=== PATIENT | male | born 1950 | race African-American/Black ===

== ENCOUNTER 2021-05-17 17:03 | Observation (INO) | payer OTHER ==
--- OUTSIDE RECORDS SUMMARY | 2021-05-17 17:09 | XMS REPORT | Continuity of Care Document ---
:1950 Author Organization [facility] Address [address] [place] [address] Care Team Providers Name Role Phone Norma Guerra Primary Care Physician MUCHER Attending Clinician Unavailable Radiology Attending Clinician Unavailable RADIOLOGY Attending Clinician Unavailable Payers Payer Name Policy Type Policy Number Effective Date Expiration Date S ource Problems Condition Condition Condition Status Onset Resolution Last Treating Co mments Source Name Details Category Date Date Treatment Clinician Date Gait Gait Disease Active 2013-02 Univers abnormalit abnormalit 1-12 it y of y y 00:00: [place] 00 [facility] Closed T12 Closed T12 Disease Active 2013-02 U nivers fracture fracture 1-10 ity of 00:00: [place] 00 Medical Branch History of History of Disease Active 2013-02 U nivers stroke stroke 1-10 ity of 00:00: [place] 00 Medical Branch Neurologic Neurologic Disease Active 2013-02 Overview : Univers al deficit al deficit 1-10 Formattin ity of present present 00:00: g of this [place] 00 note Medical might be Branch different from the original. LUE/LLE Back pain Back pain Disease Active 2013-02 Uni vers 1-10 ity of 00:00: [place] 00 Medical Branch Weakness Weakness Disease Active 2013-02 Unive rs of left of left 1-10 ity of upper upper 00:00: [place] extremity extremity 00 Medi deon Branch Lower Lower Disease Active 2013-02 Univers extremity extremity 1-10 ity of weakness, weakness, 00[place] Allergies, Adverse Reactions, Alerts Allergy Allergy Status Severity Reaction(s) Onset Inactive Treating Comm ents Source Name Type Date Date Clinician NO KNOWN Drug Active Univers ALLERGIE Class ity of S [facility] Social History Social Habit Start Date Stop Date Quantity Comments Source Exposure to Not sure [place] of SARS-CoV-2 [place] [facility] (event) Branch Tobacco use and 2013-12-21 2013-12-21 Current user Univers ity of exposure 00:00:00 00:00:00 [facility] Alcohol intake 2013-12-21 2013-12-21 Current University of 00:00:00 00:00:00 non-drinker of [facility] alcohol Branch (finding) Sex Ass[birth year] At [birth year] Universit y of 00:00:00 00:00:00 [facility] Smoking Status Start Date Stop Date Source Former smoker 2013-12-21 00:00:00 2013-12-21 00:00:00 Universi ty of [facility] Medications Ordered Filled Start Stop Current Ordering Indication Dosage Frequency Signature Comments Components Source Medication Medication Date Date Medication? Clinician (SIG) Name Name gadoteridol 2020-02- No [id number] .2mL/kg 0.2 mL/kg, Univers (PROHANCE-2 11-11 Intravenou i ty of 0 mL) 19:45: 19:33 s, ONCE, 1 [place] injection 00 :00 dose, On Medica l 0.2 mL/kg Fri Branch 11/11/20 at 1445, Routine ibuprofen 2013-02 Yes 600mg Take 1 Tab U nivers (MOTRIN) 1-12 by mouth ity of 600 mg 00:00: every 6 [place] tablet 00 (six) Medical hours as Branch needed for Alternate with [place] for pain scale 1-3 or Alternate with [place] for pain scale 4-6. carisoprodo 2013-02 Yes 350mg Take 1 Tab Univers l (SOMA) 1-12 by mouth 3 ity o f 350 mg 00:00: (three) [place] tablet 00 times Medical daily. Branch Immunizations Ordered Filled Immunization Date Status Comments Sour e Immunization Name Name Influenza Virus 2013-12-23 Completed Universit y of Vaccine Quad IM 3+ 00:00:00 [facility] YRS Branch Procedures Procedure Date / Time Performing Clinician Source Performed MR LUMBAR SPINE W WO 2020-11-11 19:10:00 Requisition, Paper [facility] CONTRAST Medical Branch NOTICE OF BILLING 2020-11-11 17:54:48 Doctor Unassigned, [facility] PRACTICES FOR MEDICARE [facility] PATIENTS [facility] PATIENT FINANCIAL 2020-11-11 17:54:29 Doctor Unassigned, Un [facility] POLICY [facility] NO SHOW OR MISSED 2020-11-11 17:54:14 Doctor Unassigned, Nora [facility] APPOINTMENT POLICY [facility] ACKNOWLEDGEMENT CONSENT/REFUSAL FOR 2020-11-11 17:53:55 [facility] ASSIGNMENT OF BENEFITS 2020-11-11 17:53:43 Doctor Unassigned, Un [facility] Encounters Start End Encounter Admission Attending Care Care Encounter Source Date/Time Date/Time Type Type Clinicians Facility Department ID 2021-05-16 2021-05-16 Outpatient REFUGIOER, [facility] [id number] [place] 00:00:00 00:00:00 [facility]RI[facility]Y [address] 2021-04-10 2021-04-10 Outpatient [facility] [id number] [place] 00:00:00 00:00:[address] 2020-11-11 2020-11-11 Hospital Radiology [facility] [id number] [facility] 12:52:32 23:59:00 Encounter [place] [id number] ity [place] [id number] [facility] [id number] [facility] 804 Branch 2020-11-11 2020-11-11 Outpatient R RADIOLOGY [facility] [id number] [facility] 00:00:00 00:00:00 ity [facility] Medical [place] Results This patient has no known results.
[2021-05-17 17:45] LABS: Absolute Lymphocytes (CBC) 2.2 K/uL (0.7-4.9); Lymphocytes % 20.4 % (15.3-44.8); MPV 9.5 fL (7.6-11.3); RBC Red Blood Cell Count 4.74 M/uL (4.33-5.43)
[2021-05-17 18:02] LABS: Potassium 4.2 mmol/L (3.5-5.1)
--- NOTE | 2021-05-17 18:38 | RAD REPORT ---
EXAM DESCRIPTION: RAD - Chest Single View - 05/17/2021 6:11 pm CLINICAL HISTORY: CHEST PAIN Chest pain. COMPARISON: Chest Pa And Lat (2 Views) dated 09/12/2016 FINDINGS: Portable technique limits examination quality. Moderate bilateral pulmonary opacities are present with atelectasis in both lung bases probably repre senting pulmonary edema. Small bilateral pleural effusions suspected. The heart is moderately enlarge d. IMPRESSION: Mild to moderate CHF pattern is suspected.
[2021-05-17] MEDS ORDERED: MORPHINE 4 MG/ML SYR ONE (19:05)
[2021-05-17] MEDS ORDERED: ONDANSETRON 4 MG/2 ML VIAL ONE (19:05)
--- NOTE | 2021-05-17 19:56 | RAD REPORT ---
EXAM DESCRIPTION: CT - Angio Aorta For Dissection - 05/17/2021 7:42 pm CLINICAL HISTORY: Chest pain radiating to the back. Dissection;PE COMPARISON: No comparisons TECHNIQUE: CT angiography of the aorta was performed with MIPs. All CT scans are performed using dose optimization technique as appropriate and may include automated exposure control or mA/KV adjustment according to patient size. FINDINGS: A left aortic arch is present with normal branching pattern of the great vessels.No acute aortic finding is seen such as aneurysm, penetrating ulcer or dissection. Aortoiliac atherosclerosis is present. The celiac axis, SMA, DIPTI and renal arteries are patent. No evidence of pulmonary embolism. Mild linear atelectasis is seen in both lung bases posteriorly. The liver demonstrates no focal mass or biliary dilatation.The spleen, pancreas, adrenal glands and k idneys are within normal limits for arterial phase imaging. Moderate fat containing umbilical hernia. No bowel obstruction, free fluid or abscess.Normal appendix.No pathologic enlarged lymphadenopathy id entified. Postsurgical changes with hardware in place involving the lumbar spine in right pelvis. IMPRESSION: No acute aortic finding is demonstrated. Linear atelectasis seen in both lung bases posteriorly.
--- NOTE | 2021-05-17 20:48 | EDPHYS ---
Physician Documentation [facility] Name: Westley Rolle Age: 70 yrs Sex: Male : 1950 Arrival Date: 05/17/2021 Time: 17:06 Bed 19 Private MD: Heidi Guerra C ED Physician Tha Mitchell HPI: 05/17 20:33 This 70 yrs old Black Male presents to ER via Ambulatory with complaints of Chest Pain, milli Back Pain. 20:33 The patient or guardian reports chest pain that is located primarily in the substernal milli area. Onset: 3 day(s) ago. The pain radiates to Associated signs and symptoms: Pertinent positives: lightheadedness, palpitations. The chest pain is described as a heaviness. Duration: The patient or guardian reports multiple episodes, that wax and wane. Modifying factors: The symptoms are alleviated by remaining still, rest, the symptoms are aggravated by exertion, movement. Severity of pain: At its worst the pain was mild in the emergency department the pain has improved moderately. The patient has not experienced similar symptoms in the past. Historical: - Allergies: 17:18 No Known Allergies; jd3 - Home Meds: 17:18 Metformin Oral [Active]; amlodipine oral [Active]; atorvastatin oral [Active]; jd3 Oxycodone HCl Oral [Active]; losartan oral [Active]; Flomax Oral [Active]; - PMHx: 17:18 Chronic pain; Hypertension; jd3 - PSHx: 17:18 back; neck; Left elbow; JUSTINE knee; jd3 - Immunization history:: Adult Immunizations up to date, Client reports receiving the 2nd dose of the Covid vaccine, Flu vaccine is not up to date. - Social history:: Smoking status: Patient/guardian denies using tobacco, the patient reports quitting approximately 3 years ago. - Family history:: not pertinent. ROS: 20:33 Constitutional: Negative for fever, chills, and weight loss, Eyes: Negative for injury, milli pain, redness, and discharge, ENT: Negative for injury, pain, and discharge, Neck: Negative for injury, pain, and swelling, Respiratory: Negative for shortness of breath, cough, wheezing, and pleuritic chest pain, Abdomen/GI: Negative for abdominal pain, nausea, vomiting, diarrhea, and constipation, Back: Negative for injury and pain, : Negative for injury, bleeding, discharge, and swelling, MS/Extremity: Negative for injury and deformity, Skin: Negative for injury, rash, and discoloration, Neuro: Negative for headache, weakness, numbness, tingling, and seizure, Psych: Negative for depression, anxiety, suicide ideation, homicidal ideation, and hallucinations, Allergy/Immunology: Negative for hives, rash, and allergies, Endocrine: Negative for neck swelling, polydipsia, polyuria, polyphagia, and marked weight changes, Hematologic/Lymphatic: Negative for swollen nodes, abnormal bleeding, and unusual bruising. 20:33 Cardiovascular: Positive for chest pain. Exam: 18:04 ECG was reviewed by the Attending Physician. kdr 20:33 Constitutional: This is a well developed, well nourished patient who is awake, alert, milli and in no acute distress. Head/Face: Normocephalic, atraumatic. Eyes: Pupils equal round and reactive to light, extra-ocular motions intact. Lids and lashes normal. Conjunctiva and sclera are non-icteric and not injected. Cornea within normal limits. Periorbital areas with no swelling, redness, or edema. ENT: Nares patent. No nasal discharge, no septal abnormalities noted. Tympanic membranes are normal and external auditory canals are clear. Oropharynx with no redness, swelling, or masses, exudates, or evidence of obstruction, uvula midline. Mucous membranes moist. Neck: Trachea midline, no thyromegaly or masses palpated, and no cervical lymphadenopathy. Supple, full range of motion without nuchal rigidity, or vertebral point tenderness. No Meningismus. Chest/axilla: Normal chest wall appearance and motion. Nontender with no deformity. No lesions are appreciated. Cardiovascular: Regular rate and rhythm with a normal S1 and S2. No gallops, murmurs, or rubs. Normal PMI, no JVD. No pulse deficits. Respiratory: Lungs have equal breath sounds bilaterally, clear to auscultation and percussion. No rales, rhonchi or wheezes noted. No increased work of breathing, no retractions or nasal flaring. Abdomen/GI: Soft, non-tender, with normal bowel sounds. No distension or tympany. No guarding or rebound. No evidence of tenderness throughout. Back: No spinal tenderness. No costovertebral tenderness. Full range of motion. Male : Normal genitalia with no discharge or lesions. Skin: Warm, dry with normal turgor. Normal color with no rashes, no lesions, and no evidence of cellulitis. MS/ Extremity: Pulses equal, no cyanosis. Neurovascular intact. Full, normal range of motion. Neuro: Awake and alert, GCS 15, oriented to person, place, time, and situation. Cranial nerves II-XII grossly intact. Motor strength 5/5 in all extremities. Sensory grossly intact. Cerebellar exam normal. Normal gait. Psych: Awake, alert, with orientation to person, place and time. Behavior, mood, and affect are within normal limits. Vital Signs: 17:41 Pulse 93; Resp 17; Pulse Ox 94% on R/A; ap3 17:42 BP 119 / 78; Weight 101.15 kg; Height 5 ft. 11 in. (180.34 cm); ap3 19:15 BP 125 / 84; Pulse 91; Resp 16; Pulse Ox 93% on R/A; ap3 20:14 BP 111 / 69; Pulse 89; Resp 20; Pulse Ox 92% on R/A; bb 17:42 Body Mass Index 31.10 (101.15 kg, 180.34 cm) ap3 MDM: 19:33 Patient medically screened. milli 20:38 Differential diagnosis: abnormal EKG, acute myocardial infarction, acute pericarditis, milli anxiety, coronary artery disease chest wall pain, congestive heart failure cholecystitis, costochondritis, esophagitis, pancreatitis, pneumonia, pneumothorax, pulmonary embolus, stable angina. HEART Score: History: Moderately Suspicious (1), ECG: Non specific repolarization disturbance / LBTB / PM (1), Age: > or = 65 years (2), Risk Factors: > or = 3 Risk factors for atherosclerotic disease (2), [Hypercholesterolemia] [Hypertension] [+ Family HX] Troponin: < or = 1 x Normal Limit (0), Total Score = 6. The patient was given aspirin in the Emergency Department. The patient's deep vein thrombosis risk score was calculated as follows: Total Score: 0. This patient was found to be at low risk for a deep vein thrombosis by using the Well's assessment criteria. The patient's pulmonary embolism risk score was calculated as follows: Total Score: 0-2 points. This patient was found to be at low risk for a pulmonary embolism by using the Well's assessment criteria. KODI Risk Score: 1 - patient's age is greater or equal to 65 years, 1 - Three or more CAD risk factors, 1- Known CAD, TOTAL SCORE = 3. Data reviewed: vital signs, nurses notes, lab test result(s), EKG, radiologic studies, CT scan. Data interpreted: quality assurance monitor final: rate is 89 beats/min, rhythm is regular, with no ectopy, Pulse oximetry: on room air is 92 %. Test interpretation: by ED physician or midlevel provider: ECG, plain radiologic studies. 05/17 17:20 Order name: Basic Metabolic Panel; Complete Time: 18:40 [facility] 05/17 17:20 Order name: CBC with Diff; Complete Time: 18:40 [facility] 05/17 17:20 Order name: Troponin HS; Complete Time: 18:40 [facility] 05/17 19:14 Order name: SARS-COV-2 RT PCR (Document "Date of Onset" if Symptomatic) [facility] 05/17 20:47 Order name: BNP [facility] 05/17 20:47 Order name: CRP [facility] 05/17 17:20 Order name: XRAY Chest (1 view); Complete Time: 18:40 [facility] 05/17 19:14 Order name: CT Aorta for Dissection; Complete Time: 20:07 milli 05/17 17:20 Order name: EKG; Complete Time: 17:21 [facility] 05/17 17:20 Order name: Cardiac monitoring; Complete Time: 17:22 [facility] 05/17 17:20 Order name: EKG - Nurse/Tech; Complete Time: 17:23 [facility] 05/17 17:20 Order name: IV Saline Lock; Complete Time: 17:38 [facility] 05/17 17:20 Order name: Labs collected and sent; Complete Time: 17:38 [facility] 05/17 17:20 Order name: O2 Per Protocol; Complete Time: 17:23 [facility] 05/17 17:20 Order name: O2 Sat Monitoring; Complete Time: 17:23 [facility] 05/17 20:55 Order name: CONS Physician Consult EDMS EC:04 Rate is 94 beats/min. Rhythm is irregular, Sinus Rhythm with PACs. QRS [place] is Normal. kdr IN interval is normal. QRS interval is normal. QT interval is normal. Clinical impression: NSR w/ Non-specific ST/T Changes and Sinus arrythmia. Administered Medications: 19:10 Drug: morphine 4 mg Route: IVP; Site: right wrist; ap3 20:18 Follow up: Response: No adverse reaction; Pain is decreased; RASS: Alert and Calm (0) bb 19:10 Drug: Zofran (Ondansetron) 4 mg Route: IVP; Site: right wrist; ap3 20:18 Follow up: Response: No adverse reaction bb 21:09 CANCELLED (Other Intervention Used): Lopressor (metoprolol TARTRATE) 50 mg PO once bb Disposition Summary: 05/17/21 21:42 Eloped Disposition: after being seen by provider milli Problem: new(05/17/21 21:42) milli Symptoms: have improved(05/17/21 21:42) milli Reason: unknown milli Condition: Undetermined(05/17/21 21:42) milli Diagnosis - Chest pain, unspecified milli - Unstable angina(05/17/21 21:42) milli - Essential (primary) hypertension(05/17/21 21:42) milli - Unspecified kidney failure - insuffency(05/17/21 21:42) milli Followup: milli - With: Heidi Guerra MD - When: Upon discharge from the Emergency Department - Reason: Recheck today's complaints, Continuance of care, Re-evaluation by your physician Signatures: Dispatcher [employer] EDMS Tha Mitchell MD MD cha Rittger, Kevin, MD MD kdr Ballard, Brenda, RN RN Eliseo Mclaughlin RN RN jd3 Eufemia Payan RN RN ap3 Corrections: (The following items were deleted from the chart) 19:18 18:46 Thorax W/ Con+CT.RAD.BRZ ordered. EDMS EDMS 21:09 20:46 Lopressor (metoprolol TARTRATE) 50 mg PO once ordered. milli bb 21:09 21:09 Lopressor (metoprolol TARTRATE) 50 mg PO once ordered. bb bb 21:39 20:48 Observation milli milli 21:39 20:48 Heidi Guerra cha milli 21:39 20:48 Telemetry/MedSurg (observation) milli milli 21:39 20:48 Fair milli milli 21:39 20:48 new milli milli 21:39 20:48 have improved milli milli 21:39 20:48 Standard milli milli 21:39 20:48 milli milli :39 20:48 Angina pectoris, unspecified milli milli : 20:48 Unstable angina mlili milli : 20:48 Essential (primary) hypertension milli milli : 20:48 Unspecified kidney failure - insufficency milli milli
--- NOTE | 2021-05-17 20:48 | ER ---
Nurse's Notes [facility] Name: Westley Rolle Age: 70 yrs Sex: Male : 1950 Arrival Date: 05/17/2021 Time: 17:06 Bed 19 Private MD: Heidi Guerra C Diagnosis: Chest pain, unspecified;Unstable angina;Essential (primary) hypertension;Unspecified kidney failure-insuffency Presentation: 05/17 17:16 Chief complaint: Patient states: "I am having this chest pain that travels to through [facility] straight to my back. I had an appointment with my doctor today and they said to come get checked out.". Coronavirus screen: At this time, the client does not indicate any symptoms associated with coronavirus-19. Ebola Screen: No symptoms or risks identified at this time. Initial Sepsis Screen: Does the patient meet any 2 criteria? No. Patient's initial sepsis screen is negative. Does the patient have a suspected source of infection? No. Patient's initial sepsis screen is negative. Risk Assessment: Do you want to hurt yourself or someone else? Patient reports no desire to harm self or others. Onset of symptoms was May 15, 2021. 17:16 Method Of Arrival: Ambulatory j 17:16 Acuity: DANGELO 3 jd3 Historical: - Allergies: 17:18 No Known Allergies; jd3 - Home Meds: 17:18 Metformin Oral [Active]; amlodipine oral [Active]; atorvastatin oral [Active]; jd3 Oxycodone HCl Oral [Active]; losartan oral [Active]; Flomax Oral [Active]; - PMHx: 17:18 Chronic pain; Hypertension; jd3 - PSHx: 17:18 back; neck; Left elbow; JUSTINE knee; jd3 - Immunization history:: Adult Immunizations up to date, Client reports receiving the 2nd dose of the Covid vaccine, Flu vaccine is not up to date. - Social history:: Smoking status: Patient/guardian denies using tobacco, the patient reports quitting approximately 3 years ago. - Family history:: not pertinent. Screenin:40 Abuse screen: Denies threats or abuse. Nutritional screening: No deficits noted. ap3 Tuberculosis screening: No symptoms or risk factors identified. Fall Risk None identified. Assessment: 17:39 General: Appears in no apparent distress. comfortable, Behavior is calm, cooperative, ap3 appropriate for age. Pain: Complains of pain in chest Pain radiates to left supraclavicular area Pain began gradually, 2-3 days ago. Neuro: Level of Consciousness is awake, alert, obeys commands, Oriented to person, place, time, situation, Appropriate for age Gait is steady, Speech is normal. Cardiovascular: Patient's skin is warm and dry. Respiratory: Airway is patent Respiratory effort is even, unlabored, Respiratory pattern is regular, symmetrical. 19:16 Reassessment: Patient and/or family updated on plan of care and expected duration. Pain ap3 level reassessed. Patient is alert, oriented x 3, equal unlabored respirations, skin warm/dry/pink. 19:25 Reassessment: pt in CT scan. bb 20:12 General: Appears in no apparent distress. Behavior is calm, cooperative. Pain: Denies bb pain. Neuro: Level of Consciousness is awake, alert, obeys commands, Oriented to person, place, time, situation. Cardiovascular: Capillary refill < 3 seconds Patient's skin is warm and dry. Respiratory: Airway is patent Respiratory effort is even, unlabored, Respiratory pattern is regular. GI: No signs and/or symptoms were reported involving the gastrointestinal system. Musculoskeletal: Circulation, motion, and sensation intact. 21:18 Reassessment: pt not in room IV catheter on counter and is intact. Dr Mitchell notified bb of pt's elopement. Vital Signs: 17:41 Pulse 93; Resp 17; Pulse Ox 94% on R/A; ap3 17:42 BP 119 / 78; Weight 101.15 kg; Height 5 ft. 11 in. (180.34 cm); ap3 19:15 BP 125 / 84; Pulse 91; Resp 16; Pulse Ox 93% on R/A; ap3 20:14 BP 111 / 69; Pulse 89; Resp 20; Pulse Ox 92% on R/A; bb 17:42 Body Mass Index 31.10 (101.15 kg, 180.34 cm) ap3 ED Course: 17:06 Patient arrived in ED. am2 17:06 Heidi Guerra MD is Private Physician. am2 17:18 Triage completed. jd3 17:20 Stefan Galloway MD is Attending Physician. kdr 17:21 Arm band placed on. jd3 17:22 Prokisch, Eufemia, RN is Primary Nurse. ap3 17:39 Inserted saline lock: 22 gauge in right forearm, using aseptic technique. Blood ap3 collected. 17:40 Patient maintains SpO2 saturation greater than 95% on room air. ap3 17:41 Patient has correct armband on for positive identification. Placed in gown. Bed in low ap3 position. Call light in reach. Side rails up X 1. monitor car operator on. Pulse ox on. NIBP on. Door closed. Noise minimized. 18:13 XRAY Chest (1 view) In Process Unspecified. EDMS 19:09 Attending Physician role handed off by Stefan Galloway MD cha 19:09 Tha Mitchell MD is Attending Physician. milli 19:44 CT Aorta for Dissection In Process Unspecified. EDMS 20:47 Heidi Guerra MD is Hospitalizing Provider. milli 21:39 Heidi Guerra MD is Referral Physician. milli Administered Medications: 19:10 Drug: morphine 4 mg Route: IVP; Site: right wrist; ap3 20:18 Follow up: Response: No adverse reaction; Pain is decreased; RASS: Alert and Calm (0) bb 19:10 Drug: Zofran (Ondansetron) 4 mg Route: IVP; Site: right wrist; ap3 20:18 Follow up: Response: No adverse reaction bb 21:09 CANCELLED (Other Intervention Used): Lopressor (metoprolol TARTRATE) 50 mg PO once bb Outcome: 20:48 Decision to Hospitalize by Provider. milli 21:42 Patient left the ED. bb Signatures: Dispatcher [employer] [facility] Tha Mitchell MD MD cha Rittger, Kevin, MD MD kdr Ballard, Brenda RN RN Eufemia Zarate Jonathon, RN RN jEufemia Fine RN RN ap3
[2021-05-17] MEDS ORDERED: METOPROLOL TAR 25 MG TAB ONE (21:09)
[2021-05-17] MEDS ORDERED: FAMOTIDINE 20 MG/2 ML VIAL IV ONE (21:09)
[2021-05-17] MEDS ORDERED: ASPIRIN 81 MG CHEWABLE TABLET ONE (21:09)
[2021-05-17] MEDS ORDERED: ENOXAPARIN 100 MG/ML SYR SQ ONE (21:10)
[2021-05-18 05:42] VITALS: BP 111/69; O2SAT 92
== END 2021-05-17 21:42 | disposition left against medical advice (07) ==
LOC: ER 17:03 → ERHOLD 21:10
PROVIDERS: ADMIT Internal Medicine; ATTEND Internal Medicine
DX: I20.0 Unstable angina (principal); Z53.21 Procedure and treatment not carried out due to patient leaving prior to being seen by health care provider; I12.9 Hypertensive chronic kidney disease with stage 1 through stage 4 chronic kidney disease, or unspecified chronic kidney disease; N18.9 Chronic kidney disease, unspecified; G89.29 Other chronic pain; Z79.84 Long term (current) use of oral hypoglycemic drugs; Z87.891 Personal history of nicotine dependence; Z20.822 Contact with and (suspected) exposure to COVID-19
CPT/HCPCS: 93005; 85025; 80048; 36415; 84484; 83880; 86140; 71275; 74175; 71045; 96375; 96374; 99285; U0003; Q9967; J2405; G0378; J1650

== ENCOUNTER 2022-03-28 09:07 | Emergency (ER) | payer OTHER ==
--- OUTSIDE RECORDS SUMMARY | 2022-03-28 09:13 | XMS REPORT | Continuity of Care Document ---
:1950 Author Organization [facility] t Address [address] [place] [address] [place] [address] Care Team Providers Name Role Phone GILLILAND PAMELA Green Primary Care Physician Unavailable Christy Cohen MD Attending Clinician [phone] So Martinez MA Attending Clinician Unavailable Shannon Patel MA Attending Clinician Unavailab marianne Nice NP, Lucero Ding Attending Clinician Marlene Wilburn MD Attending Clinician Gayle Carrillo NP Attending Clinician Leann Craig MA Attending Clinician Unavailable RADIOLOGY Attending Clinician Unavailable Radiology Attending Clinician Unavailable Santi Zeng Attending Clinician Unavailable Guanakito Lara Attending Clinician Physician, Non Associated Attending Clinician Unavailable Praveen Gonzales Attending Clinician [phone] CHRISTY COHEN Admitting Clinician Unavailable BALDOMERO DELGADILLO Admitting Clinician Unavailable Physician, No Primary or Family Admitting Clinician Unavaila Praveen Collins Admitting Clinician Payers Payer Name Policy Type Policy Number Effective Date Expiration Date Jonathan manzo MEDICARE PART A \\T\\ [id number] 2015 B 00:00:00 ANISA JOHNSON [id number] 2020 GENERAL 00:00:00 Problems Condition Condition Condition Status Onset Resolution Last Treating Co mments Source Name Details Category Date Date Treatment Clinician Date 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 Added automatic ally from request for surgery [id number] Hydrocele Hydrocele Disease Active Overview: Methodi 5-[address] 00:00: g of this Hospita 00 note l might be different from the original. Added automatic ally from request for surgery [id number] X 6/ [id number] X Diagnosis Active 2014-11-02 Memoria 33404 X 5 6/ 08297 X 9-16 09:12:00 l 5 Active 00:00: Ambrosio 10/27/2014 00 [facility] RIGHT RIGHT Diagnosis Active 2014-06-17 Mem oria SIDED SIDED 4-30 14:59:00 l CERVICAL CERVICAL 00:00: Puneet willard RADICULOAP RADICULOAP 00 THY; CERV THY; CERV Active 06/10/2014 [facility] Gait Gait Disease Active 2013-02 Univers abnormalit abnormalit 1-12 it y of y y 00:00: [place] 00 [facility] RCR RT RCR RT Diagnosis Active 2013-022016-05-01 Me moria Active 02-20 22:42:00 l 12/21/2013 08:00: Puneet willard SMR 00 [facility] Closed T12 Closed T12 Disease Active 2013-02 U nivers fracture fracture -10 ity of 00:00: [place] 00 Medical Branch History of History of Disease Active 2013-02 U nivers stroke stroke -10 ity of 00:00: [place] 00 Medical Branch Neurologic Neurologic Disease Active 2013-02 Overview : Univers al deficit al deficit 02-20 Formattin ity of present present 00:00: g of this [place] 00 note Medical might be Branch different [...] [place] left [place] Final: Final: Problem 2014-06-21 Al lucrecia 06/21/2014 00:59:52 l [facility] Arthritis Arthritis Problem Active 2014-12-12 Memoria (disorder) (disorder) 00:16:11 l Active [place] Problem 12/12/2014 [facility], [facility] Constipati Problem Active 2014-12-12 M emoria on Constipati 00:16:11 l (disorder) on Puneet n (disorder) Active Problem 12/12/2014 [facility], [facility] Hypertensi Problem Active 2014-12-12 M emoria ve Hypertensi 00:16:11 l disorder, ve [place] systemic disorder, arterial systemic (disorder) arterial (disorder) Active Problem 12/12/2014 [facility], [facility] Nocturia Nocturia Problem Active 2014-12-12 Memoria (finding) (finding) 00:16:11 l Active [place] Problem 12/12/2014 [facility], [facility] SHOULDER SHOULDER Diagnosis Active 2014-10-06 Memoria PAIN PAIN 09:55:00 l Active [facility] RTC RTC Diagnosis Active 2014-08-20 Mem oria TENDON, TENDON, 10:22:00 l ACJ ACJ [place] INJECTION INJECTION Active [facility] SPINE/FORE Diagnosis Active 2014-04-16 Memoria ARM/NECK SPINE/FORE 11:07:00 l ARM/NECK Ambrosio Active [facility] CERVICAL CERVICAL Diagnosis Active 2014-06-17 Memoria ROOT ROOT 14:59:00 l LESION NEC LESION NEC He rmann Active [facility] LUMBAR LUMBAR Diagnosis Active 2014-06-17 Me moria DISC DISC 14:59:00 l DISPLACEME DISPLACEME He rmann NT NT Active [facility] CERVICALGI CERVICALG Diagnosis Active 2014-11-10 Memoria A IA Active 09:21:00 l [facility] Cerebrovas Cerebrova Problem Resolve 1990-2014-12-12 2014-12-12 Memjuana ortiz scmoncho d -08 00:16:11 00:16:11 l accident accident 00:00: Puneet willard (disorder) (disorder) 00 Resolved 02/18/1990 Problem 12/12/2014 [facility], [facility] Allergies, Adverse Reactions, Alerts Allergy Allergy Status Severity Reaction(s) Onset Inactive Treating Comm ents Source Name Type Date Date Clinician Simeon Medel Active Other (See Me thodi zaprine ty to Comments) 2-14 st adverse 00:00: Hospita reaction 00 l s to drug No Known DA Active [facility] Allergie 4-18 Clear s 00:00: [place] 00 [facility] No Known DA Active [place] [facility] Intolera 2-26 Clear nces 00:00: [place] 00 [facility] Flexeril Flexeril Active Russel Valente NO KNOWN Drug Active Univers ALLERGIE Class ity of S [facility] Family History Family Member Diagnosis Comments Start Date Stop Date Source Natural father [facility] Natural mother Heart disease [facility] Social History Social Habit Start Date Stop Date Quantity Comments Source History of tobacco Snuff User Method ist use Hospital Alcohol intake 2022-03-27 2022-03-27 Current drinker Metho dist 00:00:00 00:00:00 of [facility] (finding) Cigarettes smoked 2021-06-23 2021-06-23 [facility] current (pack per 00:00:00 00:00:00 Hospita l day) - Reported Tobacco use and 2021-06-23 2021-06-23 User of smokeless Me thodist exposure 00:00:00 00:00:00 tobacco Hospital Tobacco Comment 2021-06-23 2021-06-23 Quit off and on Meth odist 00:00:00 00:00:00 throughout the Hospital years Alcohol Comment 2021-06-23 2021-06-23 very seldomly, Metho dist 00:00:00 00:00:00 less than 1 a Hospital month Exposure to 2021-05-26 2021-06-05 Not sure University of SARS-CoV-2 (event) 00:00:00 10:14:00 [facility] Social History 2014-06-15 2014-06-15 Livan fenton 19:30:54 19:30:54 Sex [birth year] Mandaen 00:00:00 00:00:00 Hospital Smoking Status Start Date Stop Date Source Ex-smoker 2021-06-23 00:00:00 2021-06-23 00:00:[facility] Medications Ordered Filled Start Stop Current Ordering Indication Dosage Frequency Signature Comments Components Source Medication Medication Date Date Medication? Clinician (SIG) Name Name gabapentin 2022- No Method i (NEURONTIN) 03-26 st 300 mg 00:00: 00:00 Hospita capsule 00 :00 l HYDROcodone Yes 4{tbl} Q6H Take 4 Me thodi -acetaminop 1-[address] hen (NORCO) 00:00: mouth Hospi ta 10-325 mg 00 every 6 l per tablet (six) hours as needed. Max Daily Amount: 16 tablets nystatin 2021-02 No [id number] Q.25D Apply Me thodi (MYCOSTATIN 0-11 02-[address] ) 100,000 00:00: 00:00 4 (four) Hos maria luz unit/gram 00 :00 times a l powder day. fluconazole 2021-02 No [id number] 100mg QD Take 1 Methodi (Diflucan) 0-12 21-[address] 100 MG 00:00: 04:59 (100 mg Hospita tablet 00 :00 total) by l mouth daily for 5 days. tadalafiL 2021- No [id number] 5mg Q24H Take 1 Methodi (CIALIS) 5 7-15 08-15 tablet (5 st MG tablet 00:00: 04:59 mg total) Ho spita 00 :00 by mouth l daily as needed for erectile dysfunctio n for up to 30 days. tadalafiL 2021- No [id number] 5mg Q24H Take 1 Methodi (CIALIS) 5 7-13 07-15 tablet (5 st MG tablet 00:00: 00:00 mg total) Ho spita 00 :00 by mouth l daily as needed for erectile dysfunctio n for up to 30 days. oxyCODone 2021- No [id number] Q4H Take by Met hodi (ROXICODONE 5-16 05-[address] ) 10 MG 14:50: 00:00 every 4 Hospit a tablet 51 :00 (four) l hours as needed for moderate pain .acute pain. aspirin 2021- No 81mg QD Take 81 mg Met hodi (ECOTRIN) -16 -[address] 81 MG 14:50: 00:00 daily. Hospita enteric 51 :00 l coated tablet amLODIPine Yes amlodipine M ethodi (NORVASC) 5-[address] 10 mg 14:50: tablet Hospita tablet 47 l metFORMIN Yes 500mg QD Take 500 Met hodi (GLUCOPHAGE 5-[address] ) 500 mg 14:50: mouth Hospita tablet 47 daily with l breakfast. docusate 2021- No 100mg Q.5D Take 1 Metho di sodium 06-[address] (Colace) 00:00: 04:59 (100 mg Hospi ta 100 MG 00 :00 total) by l capsule mouth 2 (two) times a day for 10 days. cephalexin 2021- No 500mg Q.5D Take 1 Met hodi (Keflex) 06-26-[address] 500 MG 00:00: 04:59 (500 mg Hospita capsule 00 :00 total) by l mouth 2 (two) times a day for 7 days. acetaminoph 2021- No [id number] 1{tbl} Q4H Take 1 Methodi en-codeine 06-26-[address] (TYLENOL 00:00: 04:59 mouth Hospita WITH 00 :00 every 4 l CODEINE #3) (four) 300-30 mg hours as per tablet needed for moderate pain for up to 7 days .acute pain. HYDROcodone 2021- No hydrocodon Methodi -acetaminop -23 06-[address] hen (NORCO) 13:16: 00:00 mg-acetami Hospita 10-325 mg 24 :00 nophen 325 l per tablet mg tablet TAKE 1 TABLET BY MOUTH THREE TIMES A DAY gadoteridol 2021- No [id number] .2mL/kg 0.2 mL/kg, Univers (PROHANCE-2 06-08 Intravenou i ty of 0 mL) 18:15: 18:05 s, ONCE, 1 [place] injection 00 :00 dose, On Medica l 0.2 mL/kg Alea Branch 06/08/21 at 1315, Routine tadalafiL 2021- No [id number] 5mg QD Take 1 Methodi (CIALIS) 5 05-16 07-05 tablet (5 st MG tablet 00:00: 04:59 mg total) Ho spita 00 :00 by mouth l daily for 90 days. tadalafiL 2021- No [id number] 5mg QD Take 1 Methodi (CIALIS) 5 04-10 04-05 tablet (5 st MG tablet 00:00: 00:00 mg total) Ho spita 00 :00 by mouth l daily for 90 days. atorvastati Yes 20mg QD Take 20 mg Methodi n (LIPITOR) 2-[address] 20 mg 00:00: nightly. Hospita tablet 00 l tamsulosin Yes TAKE 1 Metho di (FLOMAX) 2-[address] 0.4 mg 00:00: MOUTH Hospita capsule 00 DAILY, l TAKE 30 MINUTES AFTER MEAL losartan Yes TAKE 1 Methodi (COZAAR) 25 2-[address] MG tablet 00:00: MOUTH Hospita 00 DAILY IN l MORNING cyclobenzap Yes 10mg Q.[id number] Take 10 mg Methodi rine 2-08 [id number] mouth [address] (FLEXERIL) 00:00: 3D (three) Hosp joyce 10 mg 00 times a l tablet day. gadoteridol 2020-02- No [id number] .2mL/kg 0.2 mL/kg, Univers (PROHANCE-2 11-11 Intravenou i ty of 0 mL) 19:45: 19:33 s, ONCE, 1 [place] injection 00 :00 dose, On Medica l 0.2 mL/kg Fri Branch 11/11/20 at 1445, Routine Dextrose No 25 mL, Memoria 50% in 5-08 Route: l Water IV 16:59: IVP, Start Her howard 00 date: 06/18/14 11:59:00, Duration: 30 day, Stop date: 07/18/14 11:58:00, PRN Blood Glucose Results docusate No Notes: Memoria sodium 100 -07 (Same as: l mg oral 22:00: Colace) Ambrosio capsule 00 (Do Not Crush) Flomax No Notes: Memoria 5-07 (Same As: l 22:00: Flomax) Ambrosio 00 "Do Not Crush" Robaxin + No Notes: Memori a Sodium - (Same l Chloride 21:00: as:Robaxin Her howard 0.9% IV 100 00 ) mL Hydralazine No Notes: Al lucrecia -07 (Same as: l 19:46: Apresoline [place] 00 ) Push over 5 minutes ketOROLAC No 4 days Memor ia 30 mg/mL 06-17 l injectable 17:00: MEDICATION H ermann solution 00 WASTE Product Size: 30 mg Product Wasted: ___ mg phenol No Notes: Memoria topical 06-17 Chlorasept l 1.4% spray 16:31: ic [place] Her howard 00 (Same as: Chlorasept ic, Sore Throat [place]) Zofran No Notes: Memoria 5-07 (Same as: l 16:31: Zofran) [place] MEDICATION WASTE Product Size: 4 mg Product Wasted: ___ mg BD Normal No Notes: Memori a Saline -07 (Same as: l Flush 16:31: BD [place] 00 Posiflush) Phenergan No Notes: Do Mem oria -07 not give l 16:31: IV push. Ambrosio 00 (Same as: Phenergan) Norvasc No Notes: Memoria 5-07 (Same as: l 16:30: Norvasc) [place] 00 morphine No Notes: Memoria Sulfate -07 (Same l 16:28: as:MORPhin Ambrosio 00 e Sulfate) insulin No 60 units) Al lucrecia regular 100 5-07 Stable for l units/mL 16:24: 28 days at Her howard human 00 room recombinant temperatur e Expires in days from ____Date insulin No 60 units) Al lucrecia regular 100 5-07 Stable for l units/mL 16:23: 28 days at Her howard human 00 room recombinant temperatur e Expires in days from ____Date hydrALAZINE No Notes: Al lucrecia -07 (Same as: l 16:22: Apresoline [place] 00 ) Push over 5 minutes Flexeril No Notes: Memoria - (Same As: l 16:21: Flexeril) [place] 00 Dulcolax No Notes: Memoria Laxative 06-17 (Same As: l 16:20: Dulcolax, Ambrosio 00 Correctol) (Do Not Crush) "Do Not Crush" Al No Notes: Memoria hydroxide/M 06-17 (aluminum l g 16:19: hydroxide- [place] hydroxide/s 00 magnesium imethicone hyd-simeth 200 mg-200 icone mg-20 mg/5 200-200-20 mL oral mg/5ml 30 suspension ml ud LACHELLE) acetaminoph No Notes: Do M emoria en-hydrocod 06-17 not exceed l one 325 16:13: 4gm/day of Herm dick mg-10 mg 00 acetaminop oral tablet hen. (Same as: [facility] 325/10) Tylenol No Notes: Do Memor ia - not exceed l 16:13: 4 gm/day. [place] 00 (Same as: Tylenol) Morphine No Notes: Memoria - (Same l 15:21: as:MORPhin [place] 00 e Sulfate) Amlodipine No Notes: Memor ia - (Same as: l 14:00: Norvasc) [place] 00 docusate No Notes: Memoria sodium 100 06-17 (Same as: l mg oral 13:09: Colace) Ambrosio capsule 00 (Do Not Crush) Iohexol No Special Memoria -07 Instructio l 09:35: ns: Dose = Ambrosio 00 2.2ml/kg, Max dose = 100ml -- "To be infused by Radiology Staff ONLY" Robaxin No Notes: Memoria - (Same l 05:00: as:Robaxin Ambrosio ) Vancomycin No 2000 mg: Me moria 6.67 MG/ML 06-17 infuse l Injectable 02:00: over 2.5 Her howard Solution 00 hours Ketorolac No 4 days Memor ia - l 23:00: MEDICATION Ambrosio WASTE Product Size: 30 mg Product Wasted: ___ mg Hydralazine No Notes: Al lucrecia - (Same as: l 22:45: Apresoline Ambrosio ) Push over 5 minutes Hydromorpho No Notes: Al lucrecia ne 06-16 Same as l 22:11: Dilaudid [place] 00 Docusate No Notes: Memoria Sodium 100 06-16 (Same as: l MG Oral 22:00: Colace) [place] Capsule 00 (Do Not [Colace] Crush) phenol No Notes: Memoria topical 06-16 Chlorasept l 1.4% spray 21:55: ic [place] Her howard 00 (Same as: Chlorasept ic, Sore Throat [place]) Morphine No Notes: Memoria - Dose: l 21:30: Delay: Ambrosio 00 Basal rate: 4hr limit: (Same as:Joshua will) Naloxone No Notes: Memoria 5-06 Same as l 21:26: Narcan Ambrosio Saline No Notes: Memoria Flush 0.9% 06-16 (Same as: l 21:26: BD [place] 00 Posiflush) Glucose 50 No 1,000 mL, Me moria MG/ML / - Rate: 125 l Sodium 21:26: ml/hr, Ambrosio Chloride 00 Infuse 0.154 over: 8 MEQ/ML hr, Route: Injectable IV, Dosing Solution Weight 98.636 kg, Total Volume: 1,000, Start date: 06/16/14 16:26:00, Duration: 30 day, Stop date: 07/16/14 16:25:00 cyclobenzap No Notes: Al lucrecia rine - (Same As: l 21:26: Flexeril) [place] Acetaminoph No Notes: Do M emoria en 325 MG / 5-06 not exceed l Hydrocodone 21:26: 4gm/day of [place] Bitartrate 00 acetaminop 10 MG Oral hen. (Same Tablet as: [facility]anner [[place]anner 325/10) [id number]] Dulcolax No Notes: Memoria Laxative - (Same As: l 21:26: Dulcolax, Ambrosio Correctol) (Do Not Crush) "Do Not Crush" Milk of No Notes: Memoria Magnesia 06-16 (Same as: l 21:26: Milk of Magnesia, MOM) Benzocaine No 1 spray, Mem oria 50 MG/ML / 06 Route: l Glycerin 21:26: TOP, Ambrosio 330 MG/ML 00 Dosing Mucosal Weight [place] 98.636, [Cepacol kg, QID, Dual PRN Sore Relief] Throat, Start date: 06/16/14 16:26:00, Duration: 30 day, Stop date: 07/16/14 16:25:00 Al No Notes: Memoria hydroxide/M - (aluminum l g 21:26: hydroxide- [place] hydroxide/s 00 magnesium imethicone hyd-simeth 200 mg-200 icone mg-20 mg/5 200-200-20 mL oral mg/5ml 30 suspension ml ud LACHELLE) Ondansetron No Notes: Al lucrecia - (Same as: l 21:26: Zofran) [place] 00 MEDICATION WASTE Product Size: 4 mg Product Wasted: ___ mg Acetaminoph No Notes: Do M emoria en - not exceed l 21:26: 4 gm/day. [place] 00 (Same as: Tylenol) Insulin No 60 units) Al lucrecia regular -06 Stable for l 18:46: 28 days at Ambrosio 00 room temperatur e Expires in days from ____Date Promethazin No Notes: Do M emoria e 06-16 not give l 18:46: IV push. (Same as: Phenergan) Ondansetron No Notes: Al lucrecia - (Same as: l 18:46: Zofran) MEDICATION WASTE Product Size: 4 mg Product Wasted: ___ mg Naloxone No Notes: Memoria 06-16 Same as l 18:46: Narcan Flumazenil No Notes: Memor ia 06-16 (Same as: l 18:46: Romazicon) Morphine No Notes: Memoria 06-16 (Same l 18:46: as:MORPhin e Sulfate) Hydromorpho No Notes: Al lucrecia ne 06-16 Same as l 18:46: Dilaudid Calcium No 1,000 mL, Memor ia Chloride 06-16 Rate: 125 l 0.0014 18:46: ml/hr, Ambrosio MEQ/ML / 00 Infuse Potassium over: 8 Chloride hr, Route: 0.004 IV, Dosing MEQ/ML / Weight Sodium 98.636 kg, Chloride Total 0.103 Volume: MEQ/ML / 1,000, Sodium Start Lactate date: 0.028 06/16/14 MEQ/ML 13:46:00, Injectable Duration: Solution 30 day, Stop date: 07/16/14 13:45:00 Labetalol No 10 mg, 2 Al lucrecia - mL, Route: l 18:46: IVP, Drug form: INJ, Q5Min, Dosing Weight 98.636, kg, PRN Elevated BP, Start date: 06/16/14 13:46:00, Duration: 5 doses or times, Stop date: 06/17/14 14:00:00 Acetaminoph No Notes: Al lucrecia en 06-16 Infuse l 18:46: over 15 minutes Do not exceed 4gm/day of acetaminop hen MEDICATION WASTE Product Size: 1000 mg Product Wasted: ___ mg Vancomycin No 1 gm, Memori a 5-06 Route: l 17:50: IVPB, [place] 00 ONCE, Dosing Weight 98.636, kg, Start date: 06/16/14 12:50:00, Stop date: 06/16/14 12:50:00 multivitami Yes 1 tab, PO, Memoria n 5-05 Daily, 0 l 19:19: Refill(s) [place] 00 Doxazosin Yes = 1 tab, Al lucrecia 5-05 PO, Daily, l 19:19: 0 Ambrosio 00 Refill(s) Amlodipine Yes 10 mg = 1 Me moria 10 MG Oral 5-05 tab, PO, l Tablet 19:18: QAM, # 30 Puneet n [Norvasc] 00 tab, 0 Refill(s) Aspirin 81 No 81 mg = 1 Me moria MG Enteric 5-05 tab, PO, l Coated 19:18: Daily, # 0 Natalie nn Tablet 00 tab, 0 Refill(s) Acetaminoph Yes 1 tab, PO, Memoria en 325 MG / 5-05 Q6H, PRN l Hydrocodone 19:18: Pain, # 20 [place] Bitartrate 00 tab, 0 10 MG Oral Refill(s) Tablet Carisoprodo Yes 350 mg = 1 Memoria l 350 MG 5-05 tab, PO, l Oral Tablet 19:17: BID, # 21 H ermann [Soma] 00 tab, 0 Refill(s) ibuprofen 2013-02 Yes 600mg Take 1 Tab U nivers (MOTRIN) 1-12 by mouth ity of 600 mg 00:00: every 6 [place] tablet 00 (six) Medical hours as Branch needed for Alternate with [facility] for pain scale 1-3 or Alternate with [facility] for pain scale 4-6. carisoprodo 2013-02 Yes 350mg Take 1 Tab Univers l (SOMA) 1-12 by mouth 3 ity o f 350 mg 00:00: (three) [place] tablet 00 times Medical daily. Branch ibuprofen 2013-02 Yes 600mg Take 1 Tab U nivers (MOTRIN) 1-12 by mouth ity of 600 mg 00:00: every 6 [place] tablet 00 (six) Medical hours as Branch needed for Alternate with [facility] for pain scale 1-3 or Alternate with [facility] for pain scale 4-6. carisoprodo 2013-02 Yes 350mg Take 1 Tab Univers l (SOMA) 1-12 by mouth 3 ity o f 350 mg 00:00: (three) [place] tablet 00 times Medical daily. Branch Immunizations Ordered Filled Immunization Date Status Comments Sour e Immunization Name Name DAPHNIE PERERA 2021-06-05 Completed Methodis t MRNA VACCINATION 00:00:00 [facility] DAPHNIE CALDERONID-Scott 2020-12-14 Completed Methodis t MRNA VACCINATION 00:00:00 [facility] DAPHNIE CALDERONID-[place] 2020-04-19 Completed Methodis t MRNA VACCINATION 00:00:00 [facility] DAPHNIE CALDERONIDScott 2020-03-24 Completed Methodis t MRNA VACCINATION 00:00:00 [facility] Influenza Virus 2013-12-23 Completed Universit y of Vaccine Quad IM 3+ 00:00:00 [facility] Influenza Virus 2013-12-23 Completed Universit y of Vaccine Quad IM 3+ 00:00:00 [facility] Vital Signs Vital Name Observation Time Observation Value Comments Source Systolic blood 2021-06-26 19:36:00 131 mm[Hg] [facility] pressure Diastolic blood 2021-06-26 19:36:00 64 mm[Hg] [facility] pressure Heart rate 2021-06-26 19:36:00 89 /min [facility] Oxygen saturation in 2021-06-26 19:36:00 97 /min [facility] Arterial blood by Pulse oximetry Body temperature 2021-06-26 19:01:00 36.56 Dayan [facility] Respiratory rate 2021-06-26 19:01:00 16 /min [facility] Body height 2021-06-23 18:11:00 180.3 cm [facility] Body weight 2021-06-23 18:11:00 104.327 kg [facility] BMI 2021-06-23 18:11:00 32.08 kg/m2 [facility] Respitory Rate 2014-06-18 23:00:00 Russel Prieto Systolic (mm Hg) 2014-06-18 23:00:00 Al andreina Ambrosio Diastolic (mm Hg) 2014-06-18 23:00:00 Mem karine Valente Systolic (mm Hg) 2014-06-18 22:00:00 Al rial [place] Diastolic (mm Hg) 2014-06-18 22:00:00 Mem orial [place] Respitory Rate 2014-06-18 22:00:00 Russel juarez [place] Systolic (mm Hg) 2014-06-18 21:00:00 Alcullen hdz Ambrosio Diastolic (mm Hg) 2014-06-18 21:00:00 Mem orial [place] Respitory Rate 2014-06-18 21:00:00 Russel Ferreiraann Heart Rate 2014-06-16 15:27:00 [facility] [place] BMI Calculated 2014-06-16 15:27:00 Memjorge luis al [place] Weight 2014-06-16 15:27:00 [facility] Ambrosio Height 2014-06-16 15:27:00 180.34 cm [facility] [place] Weight 2014-06-15 19:24:00 [facility] [place] BMI Calculated 2014-06-15 19:24:00 Russel al Ambrosio Height 2014-06-15 19:24:00 180.34 cm [facility] Procedures Procedure Date / Time Performing Clinician Source Performed PROSTATE SPECIFIC ANTIGEN 2022-03-27 17:29:00 Lucero Nice [facility] POC URINALYSIS DIPSTICK 2021-11-21 16:43:48 Yvette Cohenchary [facility] Nik [id number] 2021-11-21 16:43:37 Christy Cohen SURGICAL PATHOLOGY REQUEST 2021-06-26 19:29:00 Christy Cohen [facility] Nik POC GLUCOSE 2021-06-26 18:26:00 Christy Cohen MO AN ELECTIVE 2021-06-26 16:54:00 Soto, [facility] ENDOTRACHEAL AIRWAY Donta EXCISION, HYDROCELE 2021-06-26 16:47:00 Christy Cohen [facility] Nik POC GLUCOSE 2021-06-26 14:22:00 Christy Cohen URINE CULTURE 2021-06-23 19:09:00 Christy Cohen URINALYSIS SCREEN AND 2021-06-23 19:09:00 Christy Cohen [facility] MICROSCOPY, WITH REFLEX TO Nik CULTURE ECG PRE/POST OP 2021-06-23 19:03:22 Keri Porter [facility] CBC WITH PLATELET AND 2021-06-23 18:29:00 Christy Cohen [facility] DIFFERENTIAL Nik COMPREHENSIVE METABOLIC 2021-06-23 18:29:00 Christy Cohen [facility] PANEL Nik PROTHROMBIN TIME WITH INR 2021-06-23 18:29:00 Christy Cohen [facility] Nik PARTIAL THROMBOPLASTIN 2021-06-23 18:29:00 Christy Coheno [facility] TIME (PTT) Nik HEMOGLOBIN A1C 2021-06-23 18:29:00 Christy Cohen Ho jani Zaragoza ESTIMATED GFR 2021-06-23 18:29:00 Christy Cohen Ho jani Zaragoza MR LUMBAR SPINE W WO 2021-06-08 18:16:00 Requisition, Paper [facility] [id number] 2021-04-10 23:01:00 [facility] POC URINALYSIS DIPSTICK 2021-04-10 23:00:00 [facility] PROSTATE SPECIFIC ANTIGEN 2021-04-10 22:11:00 [facility] MR LUMBAR SPINE W WO 2020-11-11 19:10:00 Requisition, Paper [facility] NOTICE OF BILLING 2020-11-11 17:54:48 Doctor Unassigned, [facility] PRACTICES FOR MEDICARE [facility] PATIENTS [facility] PATIENT FINANCIAL 2020-11-11 17:54:29 Doctor Unassigned, [facility] POLICY [facility] NO SHOW OR MISSED 2020-11-11 17:54:14 Doctor Unassigned, [facility] APPOINTMENT POLICY [place] [facility] ACKNOWLEDGEMENT CONSENT/REFUSAL FOR 2020-11-11 17:53:55 Doctor Unassigned, [facility] DIAGNOSIS AND TREATMENT [facility] ASSIGNMENT OF BENEFITS 2020-11-11 17:53:43 Doctor Unassigned, [facility] Spinal fusion<sup>1</sup> 2013-03-11 06:00:00 In jamil Valente Elbow joint operations [facility] Salivary gland excision [facility] Total knee replacement [facility] Plan of Care Planned Activity Planned Date Details Comments Source Future Scheduled 2022-03-28 Hepatitis C screening [facility] Test 09:11:27 (procedure) [code = 625012541] Future Scheduled 2022-03-28 COLONOSCOPY SCREENING [facility] Test 09:11:27 [code = COLONOSCOPY SCREENING] Future Scheduled 2022-03-28 65+ PNEUMOCOCCAL Methodi [facility] Test 09:11:27 VACCINE (1 - PCV) [code = 65+ PNEUMOCOCCAL VACCINE (1 - PCV)] Encounters Start End Encounter Admission Attending Care Care Encounter Source Date/Time Date/Time Type Type Clinicians Facility Department ID 2022-03-27 2022-03-27 Office Gloria, 1.2.840.1 [id number] Methodi 11:00:00 11:24:13 Visit Christy 81385.1.[address] Nik 3.430.2.7 Hospit a .3.825432 l .8 2022-03-27 2022-03-27 Travel 1.2.840.1 1.2.895.193 4722 [id number] Methodi 00:00:00 00:00:[address] 3.430.2.7 0.2.7.3.698 Ho spita .3.867285 084.8 l .8 2022-03-27 2022-03-27 Outpatient [facility] [id number] [address] [place] 00:00:00 00:00:00 CHRISTY 714 Method i 2021-12-21 2021-12-21 Outpatient [facility] [id number] [address] [place] 00:00:00 00:00:00 CHRISTY 189 Method i 2021-12-21 2021-12-21 Travel 1.2.840.1 1.2.514.957 3618 [id number] Methodi 00:00:00 00:00:[address] 3.430.2.7 0.2.7.3.698 Ho spita .3.062672 084.8 l .8 2021-11-29 2021-11-29 Telephone Juan, 1.2.840.1 [id number] 2100 837343 Methodi 00:00:00 00:00:[address] 3.430.2.7 Hospit a .3.024251 l .8 2021-11-23 2021-11-23 Prep for Patel, 1.2.840.1 [id number] 21 [id number] Methodi 00:00:00 00:00:00 Surgery Ortega 30433.1.[address] Denise 3.430.2.7 Hosp joyce .3.972175 l .8 2021-11-23 2021-11-23 Telephone Patel, 1.2.840.1 [id number] 2 [id number] Methodi 00:00:00 00:00:[address] Denise 3.430.2.7 Hosp joyce .3.336450 l .8 2021-11-21 2021-11-21 Office Gloria, 1.2.840.1 [id number] 5116 Methodi 11:00:00 12:12:30 Visit Christy 72390.1.[address] Nik 3.430.2.7 Hospit a .3.467740 l .8 2021-11-21 2021-11-21 Travel 1.2.840.1 1.2.150.811 1175 [id number] Methodi 00:00:00 00:00:[address] 3.430.2.7 0.2.7.3.698 Ho spita .3.507145 084.8 l .8 2021-11-21 2021-11-21 [facility] [id number] [address] [place] 00:00:00 00:00:00 CHRISTY [address] 2021-08-25 2021-08-25 Orders Patel, 1.2.840.1 [id number] 836 [id number] Methodi 00:00:00 00:00:00 Only Ortega 70433.1.[address] Denise 3.430.2.7 Hosp joyce .3.114693 l .8 2021-08-23 2021-08-23 Office Gloria, 1.2.840.1 [id number] 9763 Methodi 13:30:00 14:07:13 Visit Christy 83357.1.[address] Nik 3.430.2.7 Hospit a .3.108400 l .8 2021-08-23 2021-08-23 Travel 1.2.840.1 1.2.682.454 7384 188566 Methodi 00:00:00 00:00:[address] 3.430.2.7 0.2.7.3.698 Ho spita .3.396966 084.8 l .8 2021-08-23 2021-08-23 Outpatient [facility] [id number] [place] 00:00:00 00:00:[address] CHRISTY [address] 2021-07-07 2021-07-07 Office Arlet, 1.2.840.1 [id number] 1278 Methodi 09:00:00 09:22:33 Visit Lucero Ding 82326.1.[address] 3.430.2.7 Hospit a .3.268220 l .8 2021-07-07 2021-07-07 Travel 1.2.840.1 1.2.960.765 0022 [id number] Methodi 00:00:00 00:00:[address] 3.430.2.7 0.2.7.3.698 Ho spita .3.050635 084.8 l .8 2021-07-07 2021-07-07 Outpatient [facility] [id number] [address] [place] 00:00:00 00:00:[address] 2021-06-26 2021-06-26 Hospital Gloria, 1.2.840.1 [id number] 56665 Methodi 08:27:00 14:50:00 Encounter Christy 19893.1.[address] Nki 3.430.2.7 Hospit a .3.046028 l .8 2021-06-26 2021-06-26 Anesthesia Marlene Wilburn 1.2.840.1 [id number] Methodi 11:47:00 13:13:00 Event Gayle Carrillo 95890.1.[address] 3.430.2.7 Hospit a .3.639259 l .8 2021-06-26 2021-06-26 Surgery Gloria, 1.2.840.1 [id number] 6146 Methodi 10:40:00 12:15:[address] Nik 3.430.2.7 Hospit a .3.572154 l .8 2021-06-26 2021-06-26 Outpatient [facility] [id number] [address] [place] 00:00:00 00:00:00 CHRISTY [address] 2021-06-23 2021-06-23 Pre-Admiss Gloria, 1.2.840.1 [id number] 588 [id number] Methodi 13:00:00 14:00:00 ion Christy 36408.1.[address] Testing Nik 3.430.2.7 Hospit a .3.871391 l .8 2021-06-23 2021-06-23 Travel 1.2.840.1 1.2.240.566 8387 [id number] Methodi 00:00:00 00:00:[address] 3.430.2.7 0.2.7.3.698 Ho spita .3.817945 084.8 l .8 2021-06-23 2021-06-23 Outpatient [facility] [id number] 952 [place] 00:00:00 00:00:00 CHRISTY [address] 2021-06-12 2021-06-12 Prep for Jorge, 1.2.840.1 [id number] 21 [id number] Methodi 00:00:00 00:00:00 Surgery Ortega 46796.1.[address] Denise 3.430.2.7 Hosp joyce .3.791467 l .8 2021-06-09 2021-06-09 Telephone Craig, 1.2.840.1 [id number] 21 [id number] Methodi 00:00:00 00:00:[address] 3.430.2.7 Hospit a .3.423539 l .8 2021-06-08 2021-06-08 Outpatient R RADIOLOGY [facility] [id number] Univers 10:38:06 23:59:00 ity of [facility] 2021-06-08 2021-06-08 Hospital Radiology [facility] 1.2.840.114 930 [id number] Univers 10:38:06 23:59:00 Encounter SHENG 350.1.13.10 ity [facility] 4.2.7.2.686 [facility] [id number] [facility] [address] 2021-05-31 2021-05-31 [id number] [facility] 04:57:00 04:57:00 Santi 13 [facility] 2021-05-16 2021-05-16 Office Gloria, 1.2.840.1 [id number] 2073 Methodi 11:15:00 12:24:13 Visit Christy 37395.1.[address] Nik 3.430.2.7 Hospit a .3.182201 l .8 2021-05-16 2021-05-16 Travel 1.2.840.1 1.2.479.873 1724 468191 Methodi 00:00:00 00:00:[address] 3.430.2.7 0.2.7.3.698 spita .3.600445 084.8 l .8 2021-05-16 2021-05-16 Outpatient GLORIA [facility] [id number] [place] 00:00:00 00:00:00 CHRISTY [address] 2021-04-10 2021-04-10 Office Arlet, 1.2.840.1 [id number] 5817 Methodi 15:30:00 16:11:23 Visit Lucero Ding 94575.1.[address] 3.430.2.7 Hospit a .3.746309 l .8 2021-04-10 2021-04-10 Outpatient [facility] [id number] [address] [place] 00:00:00 00:00:[address] 2020-11-11 2020-11-11 Hospital Radiology [facility] 1.2.840.114 [id number] Univers 12:52:32 23:59:00 Encounter Sheng 350.1.13.10 ity [facility] 4.2.7.2.686 [facility] [id number] [facility] [address] 2020-11-11 2020-11-11 Outpatient R RADIOLOGY [facility] [id number] Univers 00:00:00 00:00:00 ity of [facility] 2014-11-10 2014-12-10 OP Therapy nullFlavo SMR [id number] [id number] Memoria 14:05:00 04:59:00 Patients r Norm Flower winslow [facility] 2014-11-10 2014-12-09 Outpatient Budoff, 2.16.840. 2.16.840.1. 3 [id number] 09:05:00 23:59:00 Guanakito Jennings 1.260120. 453769.3.61 05 3.615.51 5.51 2014-10-06 2014-11-05 OP Therapy nullFlavo SMR [id number] Memoria 14:55:00 04:59:00 Patients r Norm Monserrat winslow [facility] 2014-10-06 2014-11-04 Outpatient Budoff, 2.16.840. 2.16.840.1. 3 [id number] 09:55:00 23:59:00 Guanakito Jennings 1.381244. 484777.3.61 04 3.615.51 5.51 2014-11-02 2014-11-03 Outpatient nullFlavo TIRR 38189 [id number] Memoria 14:03:00 04:59:00 r Livan winslow Ambrosio [facility] 2014-11-02 2014-11-02 Outpatient Physician, MHTIRR MHTIRR [id number] [id number] 09:03:00 23:59:00 Non 01 Associated 2014-09-06 2014-10-06 OP Therapy nullFlavo [facility] [id number] [id number] Memoria 13:40:00 04:59:00 Patients r [place] 03 l [facility] 2014-09-06 2014-10-05 Outpatient Budoff, 2.16.840. 2.16.840.1. 3 [id number] 08:40:00 23:59:00 Guanakito Jennings 1.914098. 422629.3.61 03 3.615.51 5.51 2014-06-16 2014-06-19 Inpatient nullFlavo [facility] [id number] Memoria 21:57:00 00:00:00 r [place] 00 [facility] 2014-06-16 2014-06-18 Outpatient Christian, 2.16.840. 2.16.840.1. [id number] 16:57:00 19:00:00 Praveen 1.170630. 713250.3.61 00 David 3.615.0.1 5.0.101 [place] 2014-04-16 2014-05-16 OP Therapy nullFlavo [facility] [id number] Memoria 17:06:00 04:59:00 Patients r [place] 01 l [facility] 2014-04-16 2014-05-15 Outpatient Budoff, 2.16.840. 2.16.840.1. 3 [id number] 11:06:00 23:59:00 Guanakito Jennings 1.707362. 175984.3.61 01 3.615.0.1 5.0.609 36 9366-02-02 2014-04-14 OP Therapy nullFlavo [facility] [id number] [id number] Memoria 13:55:00 05:59:00 Patients r [place] 00 l [facility] 2014-03-15 2014-04-13 Outpatient Budoff, 2.16.840. 2.16.840.1. 3 [id number] 07:55:00 23:59:00 Guan[place]ito Jennings 1.780310. 356060.3.61 00 3.615.0.1 5.0.101 01 Results Test Description Test Time Test Comments Results Result Comments Source Prostate specific antigen 2022-03-28 10:32:00 Test Item Value Reference Range Interpretation Comme nts PSA, total (test code 0.85 ng/mL <=4.00 NOTE: NCCN Guidelines(2.2020)recommend = 4197) repeat testing every 2-4 years if PSA is <1 ng/mL and every 1-2 years if PSA is 1-3 ng/mL in men ag ed 45 to 75 years. A PSA value of 1.00 n g/mL selects for the upper range of PSA va lues. Men who have a PSA above the media n for their age group are at a higher risk f or prostate cancer and for the aggressive form of the disease. The higher above th e median, the greater the risk. NOTE: The PSA assay should not be the only test used for diagnostic purposes. Additional eval uation using HOSSEIN, ultrasound, TUR or similar procedures may be used for thi s purpose. Predictions of disease recurre nce should not be based solely upon renato ues obtained from serial PSA values obtained on the patient.NOTE: Values obtained with d ifferent assay methods or kits cannot be used interchangeably.NOTE: Results cannot be interpreted as absolute evidence of the presence or absence of malignant disea se. ASSAY INFORMATION: Method Electroc hemiluminescence Immunoassay ([employer]) NOTE: This assay has no biotin interfer ence in serum concentrations up to 1200 ng/m L. Pharmacokinetic studies have shown that serum concentrations of biotin can reac h up to 355 ng/mL within the first hour afte r biotin ingestion for subjects consum ing supplements of 20 mg biotin per day and up to 1160 ng/mL for subjects after a single dose of 300 mg biotin. [facility] [id number] 16:43:48 Test Item Value Reference Range Interpretation Comments Color urine, POC (test Yellow code = 9999031) Clarity urine, POC (test Clear code = 6961319) Glucose urine, POC (test 1+ Negative A code = 1779211) Bilirubin urine, POC Negative Negative (test code = 1900696) Ketones urine, POC (test Negative Negative code = 6796595) Specific gravity urine, 1.025 1.005-1.030 POC (test code = 5124789) Blood urine, POC (test Negative Negative code = 1263337) pH urine, POC (test code 5.0 See_Comment [A utomated message] = 2613605) The system [employer] generated this result transmitted ref erence range: 5.0, 5.5 , 6.0, 6.5, 7.0, 7.5, 8.0, 8.5. The refere nce range was not u sed to interpret this result as normal/abnor mal. Protein urine, POC (test Negative Negative code = 6938998) Urobilinogen urine, POC <2.0 <=2.0 (test code = 7140108) Nitrite urine, POC (test Negative Negative code = 7483453) Leukocyte esterase Negative Negative urine, POC (test code = 8887930) Lab Interpretation (test Abnormal code = 56860-0) [facility] BLADDER SCAN/[id number] 16:43:37 Test Item Value Reference Range Interpretation Comments Urine volume (test code = 6354) 0 [facility] lvradqt7937[facility]08-29 13:42:15 Test Item Value Reference Range Interpretation Comments Case number (test code = [id number]) Surgical pathology See link below for report (test code = PDF Lab Report 9701) Result status (test code This is Final Report = [id number]) for [id number] [facility] [id number] 18:28:00 Test Item Value Reference Range Interpretation Comments POC glucose (test code = 113 mg/dL 65-99 H Ope rator Name: [id number]) Endy Lloyd evice ID: [id number] able: RN Notified Lab Interpretation (test Abnormal code = 92470-1) [facility] [id number] 20:40:39 Test Item Value Reference Range Interpretation Comments Ventricular rate (test 74 code = 253) Atrial rate (test code = 74 255) MO interval (test code = 166 266) QRSD interval (test code 88 = 260) QT interval (test code = 364 264) QTC interval (test code 404 = 265) P axis 1 (test code = 48 267) QRS axis 1 (test code = -10 268) T wave axis (test code = -4 270) EKG impression (test Sinus rhythm with code = 273) premature atrial complexes-Possible Anterior infarct , age undetermined-Abnormal ECG-No previous ECGs available-Electronica lly Signed By Carin Abarca MD ([id number]) on 06/23/2021 3:40:37 PM [facility] [id number] 19:36:00 Test Item Value Reference Range Interpretation Comments Urine culture (test SEE COMMENT Bacteriu lucrecia screen code = 1620870) negative. 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 miter operator at [facility] BASIC METABOLIC [id number] 12:02:00 Test Item Value Reference Range Interpretation Comments SODIUM (test code = NA) 139 mEq/L 134-147 N POTASSIUM (test code = 4.8 mEq/L 3.4-5.0 N K) CHLORIDE (test code = 106 mEq/L 100-108 N CL) CARBON DIOXIDE (test 28 mEq/l 21-33 N code = CO2) ANION GAP (test code = 9 0-20 N GAP) GLUCOSE (test code = 160 mg/dL 70-110 H GLU) BLOOD UREA NITROGEN 14 mg/dL 7-18 N (test code = BUN) GLOMERULAR FILTRATION 72.2 70-80 N Units of measure = RATE (test code = GFR) ml/mi n/1.73 m2 CREATININE (test code = 1.2 mg/dL 0.6-1.3 N CREAT) CALCIUM (test code = 9.8 mg/dL 8.0-10.5 N CA) PROTHROMBIN [id number] 12:01:00 Test Item Value Reference Range Interpretation Comments PROTHROMBIN TIME 11.1 SECONDS 9.3-12.9 N PATIENT (test code = PTP) INTERNATIONAL NORMAL 1.0 0.8-1.2 N TARGET INR BY RATIO (test code = INDICATIO N Indication INR) INR1. Prophylax is of venous thrombos is 2.0 - 3.0 (orthoped ic surgery), Proph ylaxis of venous throm bosis (other than hig h-risk surgery), Treat ment of Deep Vein Thrombosis/Pulm onary Embolism, Preve ntion of systemic emb olism - Tissue heart va lves, Acute Myocardia l Infarction (to prevent systemic emboli sm), Valvular heart disease, Atrial Fibrillation, Bileaflet mecha nical valve in aortic position.2. Mec hanical prosthetic valv es (high risk), 2. 5 - 3.5 Presence of Lup us Anticoagulant o r Antiphospholipi d Antibodies, Pre vention of systemic emb olism - Acute Myocardia l Infarction (to prevent recurrent infar ct). CBC W/AUTO [id number] 12:00:00 Test Item Value Reference Range Interpretation Comments WHITE BLOOD CELL (test code = 7.5 x10 3/uL 4.5-11.0 N WBC) RED BLOOD CELL (test code = 4.85 x10 6/uL 4.00-5.60 N RBC) HEMOGLOBIN (test code = HGB) 15.1 g/dL 12.5-16.9 N HEMATOCRIT (test code = HCT) 46.5 % 37.5-50.7 N MEAN CELL VOLUME (test code = 95.9 fL 81.0-99.0 N MCV) MEAN CELL HGB (test code = MCH) 31.1 pg 27.0-33.0 N MEAN CELL HGB CONCETRATION 32.5 g/dL 33.0-37.0 L (test code = MCHC) RED CELL DISTRIBUTION WIDTH CV 12.6 % 11.5-14.5 N (test code = RDW) RED CELL DISTRIBUTION WIDTH SD 44.6 fL 37.0-54.0 N (test code = RDW-SD) PLATELET COUNT (test code = 213 x10 3/uL 150-400 N PLT) MEAN PLATELET VOLUME (test code 11.3 fL 7.0-9.0 H = MPV) NEUTROPHIL % (test code = NT%) 58.5 % 56.0-77.0 N IMMATURE GRANULOCYTE % (test 0.3 % 0.0-2.0 N code = IG%) LYMPHOCYTE % (test code = LY%) 26.7 % 14.0-32.0 N MONOCYTE % (test code = MO%) 10.9 % 4.8-9.0 H EOSINOPHIL % (test code = EO%) 2.7 % 0.3-3.7 N BASOPHIL % (test code = BA%) 0.9 % 0.0-2.0 N NUCLEATED RBC % (test code = 0.0 % 0-0 N NRBC%) NEUTROPHIL # (test code = NT#) 4.40 x10 3/uL 2.0-7.6 N IMMATURE GRANULOCYTE # (test 0.02 x10 3/uL 0.00-0.03 N code = IG#) LYMPHOCYTE # (test code = LY#) 2.01 x10 3/uL 1.0-3.8 N MONOCYTE # (test code = MO#) 0.82 x10 3/uL 0.1-0.8 H EOSINOPHIL # (test code = EO#) 0.20 x10 3/uL 0.0-0.2 N BASOPHIL # (test code = BA#) 0.07 x10 3/uL 0.0-0.2 N NUCLEATED RBC # (test code = 0.00 x10 3/uL 0.0-0.1 N NRBC#) MANUAL DIFF REQUIRED (test code NO = MDIFF) - XR CHEST 2 [id number] 00:00:00 [facility] 1950 Sex: M FAX: Santi Hollins MD [phone] [place]: JORGE St: PRE Name: JAHAIRA BAKER [facility] : 1950 Age/S: 70/M [address] [place] [address] Blvd Unit #: [id number] Loc: [place] [address] Phys: Santi Zeng MD Acct: [id number] Dis Date: Status: PRE SDC PHONE #: [phone] Exam Date: 05/29/2021 1208 FAX#: [phone] Reason: PREOP EXAMS: CPT CODE: [id number] XR CHEST 2 V 53745 PROCEDURE INFORMATION: Exam: XR Chest Exam date and time: 05/29/2021 11:28 AM Age: 70 years old Clinical indication: Pre-operative exam; Respiratory screening exam; Additional info: Preop TECHNIQUE: Imaging [facility] Views: 2 views. PA and Lateral COMPARISON: No relevant prior studies available. FINDINGS: Lungs: No focal infiltrate identified within the lungs and no edema. Pleural spaces: Unremarkable. No pleural effusion. No pneumothorax. Heart/Mediastinum: Heart size is normal. Aortic calcification. Mediastinal structures otherwise unremarkable. Bones/joints: Ihxy-he-wyzthzmz compression deformity of a midthoracic vertebral body age uncertain. Degenerative changes are seen about the thoracic spine. Patient is status post prior cervical spine surgery. Prior left rib fracture. IMPRESSION: 1. Uzvv-nk-mtwizlzl compression deformity of a midthoracic vertebral body age uncertain. 2. No focal infiltrate within the lungs. at 1437 Reported and signed by: Héctor Avitia M.D. CC: Santi Zeng MD Technologist: Sylwia Smith, RT(R) Trnscrd Date/Time/By: 05/29/2021 (1436) : By: [email or web address] Orig Print D/T: S: 05/29/2021 (143) PAGE 1 Signed [id number] 06:35:00 Test Item Value Reference Range Interpretation Comments Monocytes # (test code 1.2 See_Comment [Aut omated message] The = Monocytes #) system which generated this result tra nsmitted reference range : <=0.8. The reference r gregorio was not used to int erpret this result as normal/abnormal . [facility] [id number] 06:35:00 Test Item Value Reference Range Interpretation Comments Lymphocytes # (test code = Lymphocytes 1.6 1.0-5.5 #) [facility] CampusByezawqUQNPNHVVJB6062-85-15 06:35:00 Test Item Value Reference Range Interpretation Comments Segs (test code = Segs) 75.7 45.0-75.0 [facility] CampusXfsccosFRAPHPTKLK8586-99-90 06:35:00 Test Item Value Reference Range Interpretation Comments Monocytes (test code = Monocytes) 10.2 2.0-12.0 [facility] [id number] 06:35:00 Test Item Value Reference Range Interpretation Comments Basophils (test code = 0.4 See_Comment [Aut omated message] The Basophils) system which ge nerated this result tra nsmitted reference range : <=1.0. The reference r gregorio was not used to int erpret this result as normal/abnormal . [facility] C[id number] 06:35:00 Test Item Value Reference Range Interpretation Comments Segs-Bands # (test code = Segs-Bands #) 9.0 1.5-8.1 [facility] CampusPluavmyXEWWXSKMFI5047-11-60 06:35:00 Test Item Value Reference Range Interpretation Comments Platelet (test code = Platelet) 164 133-450 [facility] CampusGqfosoxNAPUHQOXCE4488-57-38 06:35:00 Test Item Value Reference Range Interpretation Comments MPV (test code = MPV) 8.7 7.4-10.4 [facility] CampusTgbgkpvXIHMGRXVNT1204-64-39 06:35:00 Test Item Value Reference Range Interpretation Comments RDW (test code = RDW) 13.4 11.5-14.5 [facility] CampusMajtvtrDSKJXDQFXK5795-57-89 06:35:00 Test Item Value Reference Range Interpretation Comments Hgb (test code = Hgb) 14.8 14.0-18.0 [facility] CampusMzmtbygUBSTZOBEWL6039-93-49 06:35:00 Test Item Value Reference Range Interpretation Comments MCV (test code = MCV) 97.0 80.0-94.0 [facility] CampusTmsmfaeLNVCDUFFQW8096-39-67 06:35:00 Test Item Value Reference Range Interpretation Comments Hct (test code = Hct) 45.1 42.0-54.0 [facility] CampusNosjrdxSEBUNHQJOZ5835-52-04 06:35:00 Test Item Value Reference Range Interpretation Comments MCHC (test code = MCHC) 32.8 32.0-36.0 [facility] CampusFaqpmomSKDLTNQOPX3317-33-77 06:35:00 Test Item Value Reference Range Interpretation Comments RBC (test code = RBC) 4.65 4.70-6.10 [facility] CampusAbgommsLMMQPABFEO9391-74-67 06:35:00 Test Item Value Reference Range Interpretation Comments WBC (test code = WBC) 11.8 3.7-10.4 [facility] CampusZilphwuSFSFDIBHZF4561-33-21 06:35:00 Test Item Value Reference Range Interpretation Comments MCH (test code = MCH) 31.8 pg 27.0-31.0 [facility]CbhiijqGCBMHBRUKYFT7164-19-72 06:35:00 Test Item Value Reference Range Interpretation Comments AGAP (test code = AGAP) 13.7 10.0-20.0 [facility] CenterFfdqrcmTNYTMSBCYSKM2384-63-28 06:35:00 Test Item Value Reference Range Interpretation Comments eGFR (test code = eGFR) 90 [facility] CenterMufzwokDDLNMFQDRRBG8580-55-23 06:35:00 Test Item Value Reference Range Interpretation Comments Glucose Lvl (test code = Glucose Lvl) 130 70-99 [facility] CenterLwjiznsAAHJBBSHZASR0368-84-23 06:35:00 Test Item Value Reference Range Interpretation Comments Chloride Lvl (test code = Chloride Lvl) 105 95-109 [facility] CenterBlqkjmfAHRQPBNSABAD6646-36-96 06:35:00 Test Item Value Reference Range Interpretation Comments Potassium Lvl (test code = Potassium 3.7 3.5-5.1 Lvl) [facility] CenterBkxppmqPMIEDVCNCNZO1789-05-33 06:35:00 Test Item Value Reference Range Interpretation Comments BUN (test code = BUN) 11 7-22 [facility] CenterInnkaoyHLYQTWIWVQSM4242-73-23 06:35:00 Test Item Value Reference Range Interpretation Comments Creatinine Lvl (test code = Creatinine 0.9 0.5-1.4 Lvl) [facility] CenterUxhijnoHWNHONEYTFGT5954-95-04 06:35:00 Test Item Value Reference Range Interpretation Comments Sodium Lvl (test code = Sodium Lvl) 141 135-145 [facility] CenterUjmvaffUTIWQJKFTKQC1701-77-45 06:35:00 Test Item Value Reference Range Interpretation Comments CO2 (test code = CO2) 26 24-32 [facility] CenterQwtakbrMOJAVPCJGQUA1938-01-94 06:35:00 Test Item Value Reference Range Interpretation Comments Calcium Lvl (test code = Calcium Lvl) 8.9 8.5-10.5 [facility]IgdeihkXWRAVPFFHG8407-95-03 06:35:00 Test Item Value Reference Range Interpretation Comments Lymphocytes (test code = Lymphocytes) 13.7 20.0-40.0 [facility] CampusOjeebylFDEFQBJGTC1149-03-25 17:40:00 Test Item Value Reference Range Interpretation Comments Hgb (test code = Hgb) 14.8 14.0-18.0 [facility] CampusYsywowpBQDGBPAGMI5361-28-74 17:40:00 Test Item Value Reference Range Interpretation Comments Hct (test code = Hct) 44.9 42.0-54.0 [facility]2015-05-07 07:50:00 Test Item Value Reference Range Interpretation Comments eGFR (test code = eGFR) 94 [facility]2015-05-07 07:50:00 Test Item Value Reference Range Interpretation Comments Glucose Lvl (test code = Glucose Lvl) 120 70-99 [facility]2015-05-07 07:50:00 Test Item Value Reference Range Interpretation Comments Potassium Lvl (test code = Potassium 4.7 3.5-5.1 Lvl) [facility]2015-05-07 07:50:00 Test Item Value Reference Range Interpretation Comments Sodium Lvl (test code = Sodium Lvl) 139 135-145 [facility]2015-05-07 07:50:00 Test Item Value Reference Range Interpretation Comments AGAP (test code = AGAP) 13.7 10.0-20.0 [facility]2015-05-07 07:50:00 Test Item Value Reference Range Interpretation Comments Calcium Lvl (test code = Calcium Lvl) 8.8 8.5-10.5 [facility]2015-05-07 07:50:00 Test Item Value Reference Range Interpretation Comments CO2 (test code = CO2) 26 24-32 [facility]2015-05-07 07:50:00 Test Item Value Reference Range Interpretation Comments Chloride Lvl (test code = Chloride Lvl) 104 95-109 [facility]2015-05-07 07:50:00 Test Item Value Reference Range Interpretation Comments Creatinine Lvl (test code = Creatinine 0.8 0.5-1.4 Lvl) [facility]2015-05-07 07:50:00 Test Item Value Reference Range Interpretation Comments BUN (test code = BUN) 12 7-22 [id number] 07:50:00 Test Item Value Reference Range Interpretation Comments AGAP (test code = AGAP) 13.7 10.0-20.0 [id number] 07:50:00 Test Item Value Reference Range Interpretation Comments Monocytes (test code = Monocytes) 8.4 2.0-12.0 [id number] 07:50:00 Test Item Value Reference Range Interpretation Comments Lymphocytes (test code = Lymphocytes) 12.4 20.0-40.0 [id number] 07:50:00 Test Item Value Reference Range Interpretation Comments Basophils (test code = 0.3 See_Comment [Aut omated message] The Basophils) system which ge nerated this result tra nsmitted reference range : <=1.0. The reference r gregorio was not used to int erpret this result as normal/abnormal . [id number] 07:50:00 Test Item Value Reference Range Interpretation Comments Segs (test code = Segs) 78.9 45.0-75.0 [id number] 07:50:00 Test Item Value Reference Range Interpretation Comments Lymphocytes # (test code = Lymphocytes 1.4 1.0-5.5 #) [id number] 07:50:00 Test Item Value Reference Range Interpretation Comments Segs-Bands # (test code = Segs-Bands #) 9.0 1.5-8.1 [id number] 07:50:00 Test Item Value Reference Range Interpretation Comments Monocytes # (test code 1.0 See_Comment [Aut omated message] The = Monocytes #) system which generated this result tra nsmitted reference range : <=0.8. The reference r gregorio was not used to int erpret this result as normal/abnormal . [id number] 07:50:00 Test Item Value Reference Range Interpretation Comments MCH (test code = MCH) 32.3 pg 27.0-31.0 [facility] [id number] 07:50:00 Test Item Value Reference Range Interpretation Comments Hct (test code = Hct) 45.2 42.0-54.0 [id number] 07:50:00 Test Item Value Reference Range Interpretation Comments RDW (test code = RDW) 13.3 11.5-14.5 [facility] [id number] 07:50:00 Test Item Value Reference Range Interpretation Comments MPV (test code = MPV) 9.4 7.4-10.4 [facility] [id number] 07:50:00 Test Item Value Reference Range Interpretation Comments MCHC (test code = MCHC) 33.2 32.0-36.0 [facility] [id number] 07:50:00 Test Item Value Reference Range Interpretation Comments MCV (test code = MCV) 97.3 80.0-94.0 [facility] [id number] 07:50:00 Test Item Value Reference Range Interpretation Comments Platelet (test code = Platelet) 170 133-450 [facility] [id number] 07:50:00 Test Item Value Reference Range Interpretation Comments Hgb (test code = Hgb) 15.0 14.0-18.0 [facility] [id number] 07:50:00 Test Item Value Reference Range Interpretation Comments RBC (test code = RBC) 4.65 4.70-6.10 [facility] [id number] 07:50:00 Test Item Value Reference Range Interpretation Comments WBC (test code = WBC) 11.4 3.7-10.4 [facility]2015-05-07 03:00:00 Test Item Value Reference Range Interpretation Comments Calcium Lvl (test code = Calcium Lvl) 9.8 8.5-10.5 [facility]2015-05-07 03:00:00 Test Item Value Reference Range Interpretation Comments eGFR (test code = eGFR) 94 [facility]2015-05-07 03:00:00 Test Item Value Reference Range Interpretation Comments Potassium Lvl (test code = Potassium 3.9 3.5-5.1 Lvl) [facility]2015-05-07 03:00:00 Test Item Value Reference Range Interpretation Comments Chloride Lvl (test code = Chloride Lvl) 98 95-109 [facility]2015-05-07 03:00:00 Test Item Value Reference Range Interpretation Comments CO2 (test code = CO2) 25 24-32 [facility]2015-05-07 03:00:00 Test Item Value Reference Range Interpretation Comments Creatinine Lvl (test code = Creatinine 0.8 0.5-1.4 Lvl) [facility]2015-05-07 03:00:00 Test Item Value Reference Range Interpretation Comments BUN (test code = BUN) 13 7-22 [facility]2015-05-07 03:00:00 Test Item Value Reference Range Interpretation Comments Sodium Lvl (test code = Sodium Lvl) 133 135-145 [facility]2015-05-07 03:00:00 Test Item Value Reference Range Interpretation Comments Glucose Lvl (test code = Glucose Lvl) 136 70-99 [facility]
[2022-03-28] MEDS ORDERED: ACETAMINOPHEN 500 MG TAB ONE (09:41)
[2022-03-28 10:00] LABS: Absolute Lymphocytes (CBC) 0.5 K/uL (0.7-4.9); Hematocrit 39.5 % (39.6-49.0); MCV 92.1 fL (80-100); MPV 9.3 fL (7.6-11.3); RBC Red Blood Cell Count 4.29 M/uL (4.33-5.43)
[2022-03-28 10:07] LABS: Protime INR 1.03
[2022-03-28 10:23] LABS: Bilirubin Total 0.8 mg/dL (0.2-1.0); Potassium 3.8 mmol/L (3.5-5.1)
--- NOTE | 2022-03-28 11:23 | RAD REPORT ---
EXAM DESCRIPTION: CT - Head Brain Wo Cont - 03/28/2022 11:02 am CLINICAL HISTORY: HEADACHE COMPARISON: No comparisons TECHNIQUE: Noncontrast head CT images ad were obtained without IV contrast. Multiplanar reformats we re generated and reviewed. All CT scans are performed using dose optimization technique as appropriate and may include automated exposure control or mA/KV adjustment according to patient size. FINDINGS: Right parafalcine extra-axial small focus of hyperdensity. On the coronal images, this dem onstrates marginal crescentic hyperdensity along its surface, could reflect a partially calcified men ingioma. Possibility of a small focus of subarachnoid hemorrhage is not entirely excluded. No mass, or edema. Midline structures are unremarkable apart from incidentally noted partially empty sella, nonspecific. Normal ventricular caliber for age. Moffett-white matter differentiation is preserved, without evidence of acute infarct. No abnormal extra- axial fluid collections. Mastoid air cells and visualized portions of the paranasal sinuses are clear. No acute bony findings. IMPRESSION: Possible small focus of subarachnoid hemorrhage in the right frontal parafalcine region. Alternately, this could reflect a small partially calcified meningioma. If there is continued clinical concern, consider short-term follow-up CT evaluation in 4-6 hours. No evidence of an acute territorial infarct or mass effect. The findings were communicated to Deja Parks on 03/28/2022 at 11:18 hours.
[2022-03-28] MEDS ORDERED: DIPHENHYDRAMINE 50 MG/ML VIAL ONE (11:52)
[2022-03-28] MEDS ORDERED: METOCLOPRAMIDE 10 MG/2mL INJ ONE (11:52)
[2022-03-28] MEDS ORDERED: NACHLORIDE 0.45% 1,000 ML IV ONE (11:52)
[2022-03-28] MEDS ORDERED: MAGNESIUM SULFATE 1 gm IVPB 1 GM/100 ML BAG IV ONE (11:52)
[2022-03-28] MEDS ORDERED: KETOROLAC 30 MG/ML INJ ONE (11:52)
[2022-03-28 11:59] LABS: SARS-COV-2 RT PCR POSITIVE (NEGATIVE)
--- NOTE | 2022-03-28 15:53 | RAD REPORT ---
EXAM DESCRIPTION: CT - Head Brain Wo Cont - 03/28/2022 3:25 pm CLINICAL HISTORY: DIZZINESS COMPARISON: Head Brain Wo Cont dated 03/28/2022 TECHNIQUE: All CT scans are performed using dose optimization technique as appropriate and may inclu de automated exposure control or mA/KV adjustment according to patient size. FINDINGS: No intracranial hemorrhage, hydrocephalus or extra-axial fluid collection.No areas of brai n edema or evidence of midline shift. Approximate 11 mm x 4 mm partially calcified structure along th e right aspect of the interhemispheric falx anteriorly. This is unchanged since the CT from 4 hours p rior. The paranasal sinuses and mastoids are clear. The calvarium is intact. IMPRESSION: Structure at the right aspect of the interhemispheric falx is unchanged from 4 hours bossman or. This is strongly favored to represent a meningioma rather than extra-axial hemorrhage. .
--- NOTE | 2022-03-28 15:54 | ER ---
Nurse's Notes [facility] Name: Westley Rolle Age: 71 yrs Sex: Male : 1950 Arrival Date: 03/28/2022 Time: 09:12 Bed 6 Private MD: Diagnosis: SARS-associated coronavirus as the cause of diseases classified elsewhere;Meningioma Presentation: 03/28 09:23 Chief complaint: Patient states: he has had a headache for 2 days, and gets dizzy when ap3 standing and periodically when sitting as well. patient denies nausea/vomiting. Coronavirus screen: At this time, the client does not indicate any symptoms associated with coronavirus-19. Ebola Screen: No symptoms or risks identified at this time. Initial Sepsis Screen: Does the patient meet any 2 criteria? HR > 90 bpm. Does the patient have a suspected source of infection? No. Patient's initial sepsis screen is negative. Risk Assessment: Do you want to hurt yourself or someone else? Patient reports no desire to harm self or others. Onset of symptoms was March 26, 2022. 09:23 Method Of Arrival: Wheelchair ap3 09:23 Acuity: DANGELO 3 ap3 Triage Assessment: :27 General: Appears uncomfortable, Behavior is calm, cooperative. Pain: Complains of pain ap3 in left and right temoral Pain currently is 10 out of 10 on a pain scale. Pain began gradually, 2-3 days ago. Neuro: Level of Consciousness is awake, alert, obeys commands, Oriented to person, place, time, situation, Reports headache. Cardiovascular: Patient's skin is warm and dry. Respiratory: Airway is patent Respiratory effort is even, unlabored, Respiratory pattern is regular, symmetrical. Historical: - Allergies: :26 No Known Allergies; ap3 - PMHx: :26 Chronic pain; Hypertension; Diabetes mellitus; ap3 - Immunization history:: Client reports receiving the 2nd dose of the Covid vaccine, Flu vaccine is up to date. - Social history:: Smoking status: Patient denies any tobacco usage or history of. Screenin:27 Abuse screen: Denies threats or abuse. Nutritional screening: No deficits noted. ap3 Tuberculosis screening: No symptoms or risk factors identified. 10:11 [facility] ED Fall Risk Assessment (Adult) History of falling in the last 3 months, kc6 including since admission No falls in past 3 months (0 pts) Confusion or Disorientation No (0 pts) Intoxicated or Sedated No (0 pts) Impaired Gait No (0 pts) Mobility Assist Device Used No (0 pt) Altered Elimination No (0 pt) Score/Fall Risk Level 0 - 2 = Low Risk Oriented to surroundings, Maintained a safe environment, Educated pt \T\ family on fall prevention, incl call for assistance when getting out of bed, Assessed \T\ reinforced patient's understanding of fall precautions, Hourly rounding (assess needs \T\ fall precautionary measures) done. Assessment: 10:00 General: Appears in no apparent distress. comfortable, Behavior is calm, cooperative, kc6 appropriate for age. Pain: Complains of pain in chest, head Pain does not radiate. Pain currently is 10 out of 10 on a pain scale. Quality of pain is described as aching, throbbing, Is continuous, Also complains of no other associated symptoms. Neuro: Munoz Agitation-Sedation Scale (RASS): 0 - Alert and Calm Level of Consciousness is awake, alert, obeys commands, Oriented to person, place, time, situation, Appropriate for age. Cardiovascular: Heart tones S1 S2 present Capillary refill < 3 seconds Rhythm is sinus tachycardia. Respiratory: Airway is patent Trachea midline Respiratory effort is even, unlabored, Respiratory pattern is regular, symmetrical. GI: No signs and/or symptoms were reported involving the gastrointestinal system. : No signs and/or symptoms were reported regarding the genitourinary system. EENT: No signs and/or symptoms were reported regarding the EENT system. Derm: No signs and/or symptoms reported regarding the dermatologic system. Skin is intact, Skin is pink, warm \T\ dry. Musculoskeletal: No signs and/or symptoms reported regarding the musculoskeletal system. Circulation, motion, and sensation intact. Capillary refill < 3 seconds, Range of motion: intact in all extremities. 11:00 Reassessment: Patient appears in no apparent distress at this time. No changes from kc6 previously documented assessment. Patient and/or family updated on plan of care and expected duration. Pain level reassessed. Patient is alert, oriented x 3, equal unlabored respirations, skin warm/dry/pink. 12:00 Reassessment: Patient appears in no apparent distress at this time. No changes from kc6 previously documented assessment. Patient and/or family updated on plan of care and expected duration. Pain level reassessed. Patient is alert, oriented x 3, equal unlabored respirations, skin warm/dry/pink. 12:02 Reassessment: Lisa Bailey (daughter) [phone]. kc6 13:00 Reassessment: Patient appears in no apparent distress at this time. No changes from kc6 previously documented assessment. Patient and/or family updated on plan of care and expected duration. Pain level reassessed. Patient is alert, oriented x 3, equal unlabored respirations, skin warm/dry/pink. 14:00 Reassessment: Patient appears in no apparent distress at this time. No changes from kc6 previously documented assessment. Patient and/or family updated on plan of care and expected duration. Pain level reassessed. Patient is alert, oriented x 3, equal unlabored respirations, skin warm/dry/pink. 15:00 Reassessment: Patient appears in no apparent distress at this time. No changes from kc6 previously documented assessment. Patient and/or family updated on plan of care and expected duration. Pain level reassessed. Patient is alert, oriented x 3, equal unlabored respirations, skin warm/dry/pink. 16:00 Reassessment: Patient appears in no apparent distress at this time. No changes from kc6 previously documented assessment. Patient and/or family updated on plan of care and expected duration. Pain level reassessed. Patient is alert, oriented x 3, equal unlabored respirations, skin warm/dry/pink. Vital Signs: 09:23 BP 137 / 83; Pulse 111; Resp 19; Temp 99.9(O); Pulse Ox 94% on R/A; Weight 103.42 kg; ap3 Height 6 ft. 2 in. (187.96 cm); Pain 10/10; 10:11 BP 132 / 73; Pulse 109; Resp 21 S; Pulse Ox 98% on R/A; Pain 10/10; kc6 11:11 BP 141 / 89; Pulse 97; Resp 19 S; Pulse Ox 95% on R/A; kc6 12:11 BP 141 / 84; Pulse 92; Resp 16 S; Pulse Ox 94% on R/A; kc6 13:11 BP 120 / 81; Pulse 92; Resp 15 S; Pulse Ox 94% on R/A; kc6 14:18 BP 117 / 74; Pulse 86; Resp 18; Pulse Ox 95% on R/A; ld1 09:23 Body Mass Index 29.27 (103.42 kg, 187.96 cm) ap3 ED Course: 09:12 Patient arrived in ED. mr 09:12 [facility] sb4 09:12 Veto Haider MD is Attending Physician. sb4 09:25 Triage completed. ap3 09:27 Arm band placed on right wrist. ap3 09:36 Annie Collazo, RN is Primary Nurse. ph 09:43 COVID-19/FLU A+B Sent. ph 09:53 Inserted saline lock: 20 gauge in right forearm, using aseptic technique. Missed ld1 attempt(s): 20 gauge in right antecubital area. 09:54 Erum Carrillo RN is Primary Nurse. kc6 10:10 Patient has correct armband on for positive identification. Bed in low position. Call kc6 light in reach. Side rails up X2. Adult w/ patient. 15:53 Abram Lopez MD is Referral Physician. sb4 16:55 No provider procedures requiring assistance completed. IV discontinued, intact, kc6 bleeding controlled, No redness/swelling at site. Pressure dressing applied. Administered Medications: 09:43 Drug: Acetaminophen 1000 mg Route: PO; ph 16:54 Follow up: Response: No adverse reaction; Temperature is decreased kc6 12:06 Drug: NS 0.45 % 1000 ml Route: IV; Rate: bolus; Site: right hand; kc6 16:54 Follow up: Response: No adverse reaction; IV Status: Completed infusion; IV Intake: kc6 1000ml 12:06 Drug: Magnesium Sulfate 1 grams Route: IVPB; Infused Over: 1 hrs; Site: right hand; kc6 16:54 Follow up: Response: No adverse reaction; IV Status: Completed infusion kc6 12:06 Drug: Benadryl (diphenhydrAMINE) 12.5 mg Route: IVP; Site: right hand; kc6 16:54 Follow up: Response: No adverse reaction kc6 12:06 Drug: Ketorolac 15 mg Route: IVP; Site: right hand; kc6 16:54 Follow up: Response: No adverse reaction; Pain is decreased kc6 12:06 Drug: Reglan (metoCLOPramide) 10 mg Route: IVP; Site: right hand; kc6 16:54 Follow up: Response: No adverse reaction; Nausea is decreased kc6 Medication: 14:47 VIS not applicable for this client. kc6 Intake: 16:54 IV: 1000ml; Total: 1000ml. kc6 Outcome: 15:53 Discharge ordered by . sb4 16:55 Discharged to home ambulatory, with family. kc6 16:55 Condition: stable 16:55 Discharge instructions given to patient, family, Instructed on discharge instructions, follow up and referral plans. Demonstrated understanding of instructions, follow-up care. 16:55 Patient left the ED. kc6 Signatures: Shilpi Narayan mr CollazoAnnie, RN RN ph Eufemia Payan RN RN [email or web address] Mary Ann Schafer RN RN [email or web address] Erum Carrillo RN RN kc6 Deja Parks PA-C PASixto sb4
--- NOTE | 2022-03-28 15:54 | EDPHYS ---
Physician Documentation [facility] Name: Westley Rolle Age: 71 yrs Sex: Male : 1950 Arrival Date: 03/28/2022 Time: 09:12 Bed 6 Private MD: ED Physician Veto Haider HPI: 03/28 09:34 This 71 yrs old Black Male presents to ER via Wheelchair with complaints of Cough, sb4 Dizziness. 09:34 71 year old male with past medical history of hypertension, non-insulin dependent type sb4 2 diabetes, and chronic back/neck pain who comes in with complaints of headache, dizziness, and cough. Family has concern for COVID as he was at a wedding this weekend. He reports intermittent dizziness with sitting and standing.. Historical: - Allergies: 09:26 No Known Allergies; ap3 - PMHx: 09:26 Chronic pain; Hypertension; Diabetes mellitus; ap3 - Immunization history:: Client reports receiving the 2nd dose of the Covid vaccine, Flu vaccine is up to date. - Social history:: Smoking status: Patient denies any tobacco usage or history of. ROS: 09:43 Constitutional: Negative for fever, chills, and weight loss, Eyes: Negative for injury, sb4 pain, redness, and discharge, ENT: Negative for injury, pain, and discharge, Cardiovascular: Negative for chest pain, palpitations, and edema, Abdomen/GI: Negative for abdominal pain, nausea, vomiting, diarrhea, and constipation, MS/Extremity: Negative for injury and deformity, Skin: Negative for injury, rash, and discoloration. 09:43 Respiratory: Positive for cough, with sputum, unsure of color. 09:43 Neuro: Positive for dizziness, headache, Negative for altered mental status, syncope, visual changes. Exam: 09:45 Head/Face: Normocephalic, atraumatic. Eyes: Extra-ocular motions intact. Periorbital sb4 areas with no swelling, redness, or edema. ENT: Mucous membranes moist. Respiratory: Lungs have equal breath sounds bilaterally, clear to auscultation and percussion. No rales, rhonchi or wheezes noted. No increased work of breathing, no retractions or nasal flaring. Abdomen/GI: Soft, non-tender, no distension. Skin: Warm, dry with normal turgor. Normal color with no rashes, no lesions, and no evidence of cellulitis. MS/ Extremity: Pulses equal, no cyanosis. Neurovascular intact. Full, normal range of motion. Neuro: Awake and alert, GCS 15, oriented to person, place, time, and situation. Cranial nerves II-XII grossly intact. Motor strength 5/5 in all extremities. Sensory grossly intact. Cerebellar exam normal. Normal gait. 09:45 Constitutional: The patient appears alert, awake, uncomfortable. 09:45 Cardiovascular: Rate: tachycardic. 13:39 ECG was reviewed by the Attending Physician. sb4 Vital Signs: 09:23 BP 137 / 83; Pulse 111; Resp 19; Temp 99.9(O); Pulse Ox 94% on R/A; Weight 103.42 kg; ap3 Height 6 ft. 2 in. (187.96 cm); Pain 10/10; 10:11 BP 132 / 73; Pulse 109; Resp 21 S; Pulse Ox 98% on R/A; Pain 10/10; kc6 11:11 BP 141 / 89; Pulse 97; Resp 19 S; Pulse Ox 95% on R/A; kc6 12:11 BP 141 / 84; Pulse 92; Resp 16 S; Pulse Ox 94% on R/A; kc6 13:11 BP 120 / 81; Pulse 92; Resp 15 S; Pulse Ox 94% on R/A; kc6 14:18 BP 117 / 74; Pulse 86; Resp 18; Pulse Ox 95% on R/A; ld1 09:23 Body Mass Index 29.27 (103.42 kg, 187.96 cm) ap3 MDM: 09:31 Patient medically screened. sb4 09:58 Differential Diagnosis: Influenza Upper Respiratory Infection Pneumonia Other COVID, sb4 DKA, HHS. 14:31 ED course: Head CT showing partially calcified meningioma vs small subarachnoid sb4 hemorrhage. Radiology recommended to repeat head CT in 4-6 hours. Patient denies any head trauma. Will continue to observe patient and obtain repeat CT. Symptoms likely secondary to covid-19.. 16:49 Data reviewed: vital signs, nurses notes, EMS record, lab test result(s), radiologic sb4 studies, CT scan, I have discussed the patient's presentation/case with the attending Emergency Department Physician; and as a result, I will. Data reviewed: I have discussed the patient's presentation/case with the attending Emergency Department Physician; and as a result, I will discharge patient. Special discussion: Based on the history and exam findings, there is no indication for further emergent testing or inpatient evaluation. I discussed with the patient/guardian the need to see the neurologist for further evaluation of the symptoms. 03/28 09:32 Order name: Blood Culture Adult (2) sb4 03/28 09:32 Order name: CBC with Diff sb4 03/28 09:32 Order name: CMP sb4 03/28 09:32 Order name: Lactate w/ 2H reflex if indic. sb4 03/28 09:32 Order name: Protime (+inr) sb4 03/28 09:32 Order name: Ptt, Activated sb4 03/28 09:32 Order name: COVID-19/FLU A+B sb4 03/28 10:05 Order name: CBC with Automated Diff; Complete Time: 10:23 EDMS 03/28 10:07 Order name: Protime (+INR); Complete Time: 10:23 EDMS 03/28 10:07 Order name: PTT, Activated Partial Thromb; Complete Time: 10:23 EDMS 03/28 10:18 Order name: Lactate w/ 2H reflex if indic.; Complete Time: 10:23 EDMS 03/28 10:24 Order name: Comprehensive Metabolic Panel; Complete Time: 10:24 EDMS 03/28 10:25 Order name: Head Brain Wo Cont CT 4 03/28 12:00 Order name: COVID-19/FLU A+B; Complete Time: 12:08 EDMS 03/28 09:32 Order name: EKG; Complete Time: 09:33 sb03/28 09:32 Order name: Accucheck; Complete Time: 09:54 sb4 03/28 09:32 Order name: Cardiac monitoring; Complete Time: 09:53 sb4 03/28 09:32 Order name: EKG - Nurse/Tech; Complete Time: 09:53 sb4 03/28 09:32 Order name: IV Saline Lock - Large Bore; Complete Time: 09:53 sb4 03/28 09:32 Order name: Labs collected and sent; Complete Time: 09:53 sb4 03/28 09:32 Order name: O2 Per Protocol; Complete Time: 09:43 sb4 02/15 11:23 Order name: CT; Complete Time: 11:28 EDMS 03/28 15:12 Order name: Head Brain Wo Cont CT sb4 03/28 15:53 Order name: CT; Complete Time: 15:53 EDMS 03/28 09:32 Order name: O2 Sat Monitoring; Complete Time: 09:43 sb4 03/28 09:32 Order name: Vital Signs; Complete Time: 09:54 sb4 EC:39 Rate is 104 beats/min. Rhythm is regular, Sinus tachycardia. QRS [place] is Normal. [place] sb4 interval is normal. QRS interval is normal. QT interval is normal. No Q waves. T waves are Normal. No ST changes noted. Administered Medications: 09:43 Drug: Acetaminophen 1000 mg Route: PO; ph 16:54 Follow up: Response: No adverse reaction; Temperature is decreased kc6 12:06 Drug: NS 0.45 % 1000 ml Route: IV; Rate: bolus; Site: right hand; kc6 16:54 Follow up: Response: No adverse reaction; IV Status: Completed infusion; IV Intake: kc6 1000ml 12:06 Drug: Magnesium Sulfate 1 grams Route: IVPB; Infused Over: 1 hrs; Site: right hand; kc6 16:54 Follow up: Response: No adverse reaction; IV Status: Completed infusion kc6 12:06 Drug: Benadryl (diphenhydrAMINE) 12.5 mg Route: IVP; Site: right hand; kc6 16:54 Follow up: Response: No adverse reaction kc6 12:06 Drug: Ketorolac 15 mg Route: IVP; Site: right hand; kc6 16:54 Follow up: Response: No adverse reaction; Pain is decreased kc6 12:06 Drug: Reglan (metoCLOPramide) 10 mg Route: IVP; Site: right hand; kc6 16:54 Follow up: Response: No adverse reaction; Nausea is decreased kc6 Disposition Summary: 03/28/22 15:53 Discharge Ordered Location: Home sb4 Problem: an ongoing problem sb4 Symptoms: are unchanged sb4 Condition: Stable sb4 Diagnosis - SARS-associated coronavirus as the cause of diseases classified elsewhere sb4 - Meningioma sb4 Followup: sb4 - With: - When: 2 - 3 days - Reason: Further diagnostic work-up, Recheck today's complaints, Re-evaluation by your physician Discharge Instructions: - Discharge Summary Sheet sb4 - Meningioma sb4 - COVID-19 sb4 Forms: - Medication Reconciliation Form sb4 - Thank You Letter sb4 - Antibiotic Education sb4 - Prescription Opioid Use sb4 Signatures: Dispatcher [employer] Annie Candelario, RN RN Eufemia Alvarado RN RN [email or web address] Erum Carrillo RN RN [id number] Deja Parks PA-C PA-C sb4
[2022-03-28 17:01] VITALS: TEMP 99.9
[2022-03-28 17:07] VITALS: BP 117/74; O2SAT 95
--- NOTE | 2022-03-29 11:53 | EKG ---
Test Date: 2022-03-28 Test Time: 09:51:11 Packing Machine Operator: IHLDA MEASUREMENT RESULTS: Intervals: Rate: 104 SD: 162 QRSD: 98 QT: 318 QTc: 418 [place]: P: 39 SD: 162 QRS: 13 T: -19 INTERPRETIVE STATEMENTS: Sinus tachycardia Otherwise normal ECG Compared to ECG 05/17/2021 17:18:06 Sinus rhythm no longer present Atrial premature complex(es) no longer present T-wave abnormality no longer present Electronically Signed On 03-29-22 11:51:45 HOME HEALTH NURSE LICENSED PRACTICAL by Santi Zeng
== END 2022-03-28 16:55 | disposition home or self-care (01) ==
LOC: ER 09:07
DX: U07.1 COVID-19 (principal); D32.9 Benign neoplasm of meninges, unspecified; E11.9 Type 2 diabetes mellitus without complications; I10 Essential (primary) hypertension
CPT/HCPCS: 87040 ×2; 85025; 36415; 85610; 83605; 85730; 80053; 0240U; 70450 ×2; J2765; J1200; J3475; 93005

== ENCOUNTER 2024-05-15 18:07 | Emergency (ER) | payer OTHER ==
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
[2024-05-15 20:44] VITALS: TEMP 97.8
[2024-05-15 20:46] VITALS: BP 110/64; O2SAT 96
== END 2024-05-15 20:38 | disposition home or self-care (01) ==
LOC: ER 18:07
DX: S16.1XXA Strain of muscle, fascia and tendon at neck level, initial encounter (principal); S29.012A Strain of muscle and tendon of back wall of thorax, initial encounter; V49.40XA Driver injured in collision with unspecified motor vehicles in traffic accident, initial encounter
CPT/HCPCS: 70450; 71250; 72125; 74176; 99282